=== PATIENT | male | born 1945 | race Caucasian/White ===

== ENCOUNTER → 2017-05-08 | Outpatient (CLI) | payer MEDICARE, OTHER ==
[~2017-05-08] MED LIST: ASPI81TA44 PO; ESOM20CA PO; ESOM40CA25 PO; ESTR2TAB PO; FEXO60TA25 PO; IBUP800T19 PO; NITR0.4T22 SL; SULF1TAB24 PO; TELM80TA PO
--- NOTE | 2017-05-08 13:18 | RAD ---
Indication lung cancer screening. Noncontrast imaging through the chest was performed and is compared to a study 03/30/2016. Imaging through the upper abdomen is unremarkable. A mass, compatible with a cyst, is noted in the right lobe of the liver. There is a nodule in the left lobe of the thyroid similar to the previous exam. There is some mild adenopathy in the mediastinum also appearing similar. Definite significant hilar or mediastinal adenopathy is not seen. Moderately extensive coronary calcification is noted. An acute finding in the chest is not seen. Some minimal pleural-parenchymal scarring is noted. There is no dominant soft tissue mass. IMPRESSION: No acute finding seen in the chest. No significant change. Underlying emphysematous changes. Lung BI-RADS negative. Category 1. PQRS Compliance Statement: One or more of the following individualized dose reduction techniques were utilized for this examination: 1. Automated exposure control 2. Adjustment of the mA and/or kV according to patient size 3. Use of iterative reconstruction technique
== END | disposition home or self-care (01) ==
LOC: CT 12:37
PROVIDERS: ATTEND Internal Medicine Pulmonary Disease
DX: Z12.2 Encounter for screening for malignant neoplasm of respiratory organs (principal); F17.210 Nicotine dependence, cigarettes, uncomplicated
CPT/HCPCS: 71250

== ENCOUNTER → 2018-05-11 | Outpatient (CLI) | payer MEDICARE, OTHER ==
[~2018-05-11] MED LIST changes: -ASPI81TA44 PO; +ASPI81TA59 PO
--- NOTE | 2018-05-11 14:43 | RAD ---
Indication: Smoker. COPD. Technique: Axial images and coronal and sagittal reformatted images are provided. Comparison is from May 08, 2017. One or more of the following individualized dose reduction techniques were utilized for this examination: 1. Automated exposure control 2. Adjustment of the mA and/or kV according to patient size 3. Use of iterative reconstruction technique Findings: Centrilobular and paraseptal emphysema is moderate with an upper lobe predominance. Areas of presumed atelectasis or scarring are noted in the lung bases. There is a 5 mm left costophrenic sulcus nodule on image 88. There is lingular atelectasis or scarring. There are calcified granulomas.There is no pleural effusion. Central airways are patent. There is atheromatous disease in the thoracic aorta. There are calcified mediastinal lymph nodes. There are subcentimeter short axis mediastinal lymph nodes that may be reactive. There are calcified hilar lymph nodes. There is no definite hilar adenopathy on this noncontrast study. There are coronary artery calcifications. The heart is not enlarged. There is fatty infiltration of the liver. There is a probable cyst in the right hepatic lobe measuring 17 mm that is stable. There are degenerative changes in the spine. IMPRESSION: 1. Emphysema. 2. Stable pulmonary nodule. No further workup is required per 2017 Fleischner guidelines. Electronically signed by: David Austin MD (05/11/2018 2:40 PM) [facility]
== END | disposition home or self-care (01) ==
LOC: CT 08:48
PROVIDERS: ATTEND Internal Medicine Pulmonary Disease
DX: J43.9 Emphysema, unspecified (principal); I70.0 Atherosclerosis of aorta; F17.200 Nicotine dependence, unspecified, uncomplicated; R91.1 Solitary pulmonary nodule
CPT/HCPCS: 71250

== ENCOUNTER → 2019-04-16 | Outpatient (CLI) | payer MEDICARE, OTHER ==
--- NOTE | 2019-04-16 10:49 | CARD ---
MR#: [id number] Date of Study: 04/16/2019 Ordering Physician: ROXI WELLER, Referring Physician: ROXI WELLER, Tech: Fanny Grajeda APPROVED REPORT EXAM: Two-dimensional and M-mode echocardiogram with Doppler and color Doppler. Other Information Quality : GoodHR: 61bpm INDICATION COPD CAD RISK FACTORS Hypertension Hyperlipidemia Smoking 2D DIMENSIONS RVDd3.1 (2.9-3.5cm)Left Atrium(2D)3.8 (1.6-4.0cm) IVSd1.3 (0.7-1.1cm)Aortic Root(2D)3.0 (2.0-3.7cm) LVDd5.1 (3.9-5.9cm)LVOT Diameter2.2 (1.8-2.4cm) PWd1.1 (0.7-1.1cm)LVDs3.4 (2.5-4.0cm) FS (%) 34.1 %SV77.7 ml LVEF(%)62.7 (>50%) Aortic Valve AoV Peak Jaden.118.7cm/sAoV VTI28.4cm AO Peak GR.5.6mmHgLVOT Peak Jaden.87.9cm/s LVOT VTI 21.06cmAO Mean GR.3mmHg AB (VMAX)2.02sn8QUN (VTI)2.79cm2 Mitral Valve MV E Vleecosw57.2cm/sMV DECEL TPWT705qx MV A Sicqokuq52.5cm/sE/A Ratio0.9 Pulmonary Valve PV Peak Lgiwnasd86.9cm/sPV Peak Grad.3mmHg Tricuspid Valve TR P. Rwnznemc936aj/sRAP ZFNEYMKN5exLb TR Peak Gr.54zrVvLNZH53tpTz Pulmonary Vein S1 Xngdsgkm04.0cm/sD2 Sbkitqec55.5cm/s LEFT VENTRICLE The left ventricle is normal size. There is mild to moderate concentric left ventricular hypertrophy. The left ventricular systolic function is normal. The Ejection Fraction is 55-60%. There is normal L V segmental wall motion. Transmitral Doppler flow pattern is Grade I-abnormal relaxation pattern. RIGHT VENTRICLE The right ventricle is normal size. There is normal right ventricular wall thickness. The right ventr icular systolic function is normal. ATRIA The left atrium size is normal. The right atrium size is normal. The interatrial septum is intact wit h no evidence for an atrial septal defect or patent foramen ovale as noted on 2-D or Doppler imaging. AORTIC VALVE The aortic valve is normal in structure and function. Doppler and Color Flow revealed no significant aortic regurgitation. There is no significant aortic valvular stenosis. MITRAL VALVE The mitral valve is normal in structure and function. There is no evidence of mitral valve prolapse. There is no mitral valve stenosis. Doppler and Color-flow revealed trace mitral regurgitation. TRICUSPID VALVE The tricuspid valve is normal in structure and function. Doppler and Color Flow revealed trace tricus pid regurgitation with an estimated PAP of 31 mmHg. There is no tricuspid valve stenosis. PULMONIC VALVE The pulmonary valve is normal in structure and function. Doppler and Color Flow revealed trace pulmon ic valvular regurgitation. GREAT VESSELS The aortic root is normal in size. The IVC is normal in size and collapses >50% with inspiration. PERICARDIAL EFFUSION There is no evidence of significant pericardial effusion. Critical Notification Critical Value: No <Conclusion> The left ventricular systolic function is normal. The Ejection Fraction is 55-60%. There is normal LV segmental wall motion. Transmitral Doppler flow pattern is Grade I-abnormal relaxation pattern. Trace mitral regurgitation. Trace tricuspid regurgitation with an estimated PAP of 31 mmHg. There is no evidence of significant pericardial effusion. Signed by : Lazaro Bobby, Electronically Approved : 04/16/2019 10:48:41
== END | disposition home or self-care (01) ==
LOC: ECHO 08:33
PROVIDERS: ATTEND Internal Medicine Cardiovascular Disease
DX: I25.10 Atherosclerotic heart disease of native coronary artery without angina pectoris (principal); J44.9 Chronic obstructive pulmonary disease, unspecified; E78.5 Hyperlipidemia, unspecified; F17.200 Nicotine dependence, unspecified, uncomplicated; I11.9 Hypertensive heart disease without heart failure; R00.8 Other abnormalities of heart beat
CPT/HCPCS: 93306

== ENCOUNTER 2019-05-28 09:32 | Emergency (ER) | payer MEDICARE, OTHER ==
[~2019-05-28] VITALS: Ht 182.9 cm; Wt 85.3 kg
[2019-05-28] MEDS ORDERED: IV NORMAL SALINE 1,000ML 1,000 ML IV SCH (09:50)
[2019-05-28] MEDS ORDERED: NITROGLYCERIN SUBLINGUAL 0.4 MG BOTTLE OF 25. SL PRN (10:00)
[2019-05-28 10:09] LABS: BASO # 0.1 x10^3/uL (0.0-0.2); BASO % 1 % (0-3); EOS # 0.1 x10^3/uL (0.0-0.7); EOS % 1 % (0-3); HEMATOCRIT 43.6 % (39.0-53.0); HEMOGLOBIN 14.1 g/dL (13.0-17.5); LYMPH # 2.2 x10^3/uL (1.0-4.8); LYMPH % 20 % (24-48); MEAN CORPUSCULAR HEMOGLOBIN 30 pg (25-35); MEAN CORPUSCULAR HGB CONC 32 g/dL (31-37); MEAN CORPUSCULAR VOLUME 92 fL (79-100); MONO # 0.7 x10^3/uL (0.0-1.1); MONO % 7 % (0-9); NEUT # 7.9 x10^3uL (1.8-7.7); NEUT % 71 % (31-73); PLATELET COUNT 278 x10^3/uL (140-400); RED BLOOD COUNT 4.72 x10^6/uL (4.30-5.70); RED CELL DISTRIBUTION WIDTH 14.4 % (11.5-14.5)
[2019-05-28] MEDS ORDERED: ASPIRIN 81 MG TAB.CHEW PO ONE (10:15)
--- NOTE | 2019-05-28 10:16 | PHYS DOC ---
Adult General Chief Complaint Chief Complaint: CHEST PAIN HPI HPI Patient is a 73 year old male who presents with complaint of chest pain. Patient states that his symptoms started this morning at approximately 0730. States that he awoke from sleep with chest pain. Notes that starts in the center of his chest and radiates through to his back. Describes the pain as a pressure and twisting sensation into his back. Has history of previous myocardial infarction and history of asthma. Does note associated shortness of breath. No fever or cough. Patient states that he took a total of 2 nitroglycerin at home prior to arrival of the ambulance. He was given 324 mg of aspirin and given a total of 200 �g of fentanyl by EMS prior to arrival. States despite treatment he is still having severe pain at this time. Review of Systems Review of Systems Constitutional: Denies fever or chills [] Eyes: Denies change in visual acuity, redness, or eye pain [] HENT: Denies nasal congestion or sore throat [] Respiratory: Shortness of breath[] Cardiovascular: Chest pain, denies edema[] GI: Nausea, denies abdominal pain, vomiting, bloody stools or diarrhea [] : Denies dysuria or hematuria [] Musculoskeletal: Denies back pain or joint pain [] Integument: Denies rash or skin lesions [] Neurologic: Denies headache, focal weakness or sensory changes [] All other systems were reviewed and found to be within normal limits, except as documented in this note. Current Medications Current Medications Current Medications Medications (Trade) Dose Ordered Sig/Wiliam Start Time Stop Time Status Last Admin Dose Admin Aspirin (Children'S Aspirin) 324 mg 1X ONCE 05/28/19 10:15 05/28/19 10:05 DC Fentanyl Citrate (Fentanyl 2ml Vial) 50 mcg PRN Q15MIN PRN 05/28/19 10:00 05/29/19 09:59 Nitroglycerin (Nitrostat) 0.4 mg PRN Q5MIN PRN 05/28/19 10:00 05/29/19 09:59 Ondansetron HCl (Zofran) 4 mg 1X ONCE 05/28/19 10:30 05/28/19 10:31 Sodium Chloride 1,000 ml @ 125 mls/hr Q8H 05/28/19 09:50 05/28/19 17:49 Allergies Allergies Allergies Coded Allergies Type Severity Reaction Last Updated Verified Penicillins Allergy Unknown 05/05/14 Yes orange juice Allergy Unknown 12/15/14 Yes pineapple Allergy Unknown 12/15/14 Yes Physical Exam Physical Exam Constitutional: Alert, afebrile, appears in severe discomfort. [] HENT: Normocephalic, atraumatic, bilateral external ears normal, oropharynx moist, no oral exudates, nose normal. [] Eyes: PERRLA, EOMI, conjunctiva normal, no discharge. [] Neck: Normal range of motion, no tenderness, supple, no stridor. [] Cardiovascular:Heart rate regular rhythm, no murmur [] Lungs & Thorax: Bilateral breath sounds clear to auscultation [] Abdomen: Bowel sounds normal, soft, no tenderness, no masses, no pulsatile masses. [] Skin: Warm, dry, no erythema, no rash. [] Back: No tenderness, no CVA tenderness. [] Extremities: No tenderness, no cyanosis, no clubbing, ROM intact, no edema. [] Neurologic: Alert and oriented X 3, normal motor function, normal sensory function, no focal deficits noted. [] Current Patient Data Vital Signs Vital Signs Date Time Temp Pulse Resp B/P (MAP) Pulse Ox O2 Delivery O2 Flow Rate FiO2 05/28/19 12:25 66 16 167/70 (102) 98 Nasal Cannula 2.0 05/28/19 10:27 98.2 Lab Results Laboratory Tests Test 05/28/19 09:57 White Blood Count 11.0 x10^3/uL (4.0-11.0) Red Blood Count 4.72 x10^6/uL (4.30-5.70) Hemoglobin 14.1 g/dL (13.0-17.5) Hematocrit 43.6 % (39.0-53.0) Mean Corpuscular Volume 92 fL (79-100) Mean Corpuscular Hemoglobin 30 pg (25-35) Mean Corpuscular Hemoglobin Concent 32 g/dL (31-37) Red Cell Distribution Width 14.4 % (11.5-14.5) Platelet Count 278 x10^3/uL (140-400) Neutrophils (%) (Auto) 71 % (31-73) Lymphocytes (%) (Auto) 20 % (24-48) L Monocytes (%) (Auto) 7 % (0-9) Eosinophils (%) (Auto) 1 % (0-3) Basophils (%) (Auto) 1 % (0-3) Neutrophils # (Auto) 7.9 x10^3uL (1.8-7.7) H Lymphocytes # (Auto) 2.2 x10^3/uL (1.0-4.8) Monocytes # (Auto) 0.7 x10^3/uL (0.0-1.1) Eosinophils # (Auto) 0.1 x10^3/uL (0.0-0.7) Basophils # (Auto) 0.1 x10^3/uL (0.0-0.2) EKG EKG Interpreted by me: Heart rate 53, sinus rhythm, normal intervals, normal axis, no acute ST/T-wave abnormalities present[] Radiology/Procedures Radiology/Procedures [address] [address] IMAGING REPORT Signed PATIENT: TOÑA EDWARDS ACCOUNT: [id number] : 1945 LOCATION: ER AGE: 73 SEX: M EXAM STATUS: REG ER ORD. PHYSICIAN: GALILEO QUINN MD REASON: chest pain PROCEDURE: PORTABLE CHEST 1V PORTABLE CHEST 1V Clinical Indication: Chest pain Comparison: CT chest without contrast, May 11, 2018. Findings: The cardiomediastinal silhouette is normal. Mild bibasilar atelectasis. Upper lung emphysema. There is no pneumothorax. No pleural effusion is appreciated. No acute bone abnormality. IMPRESSION: 1. Mild bibasilar atelectasis. 2. Emphysema. Electronically signed by: Noah Valverde MD (05/28/2019 10:55 AM) [id number] DICTATED AND SIGNED BY: NOAH VALVERDE MD DATE: 05/28/19 1758 CC: GALILEO QUINN MD; YONY ARTEAGA MD ~ [address] [address] IMAGING REPORT Signed PATIENT: TOÑA EDWARDS ACCOUNT: [id number] : 1945 LOCATION: ER AGE: 73 SEX: M EXAM STATUS: REG ER ORD. PHYSICIAN: GALILEO QUINN MD REASON: severe CP radiating through back, rule out aortic dissection PROCEDURE: CT ANGIO CHEST ABD PELVIS CT ANGIO CHEST ABD PELVIS History: Severe chest pain radiating to back Technique: CT angiogram of the chest abdomen and pelvis was performed with contrast. Coronal and sagittal reconstructions were performed. Exposure: One or more of the following individualized dose reduction techniques were utilized for this examination: 1. Automated exposure control 2. Adjustment of the mA and/or kV according to patient size 3. Use of iterative reconstruction technique. Contrast: 100 mL Isovue-300 IV contrast. Comparison: Chest CT May 11, 2018. CT May 08, 2017 Findings: Chest: Irregular aortic wall thickening beginning at the aortic arch distal to the left subclavian artery origin extending through the descending thoracic aorta to the aortic hiatus. There is displacement of intimal calcifications. The wall thickening has increased Hounsfield units. Findings concerning for acute intracranial hematoma. No aortic aneurysm. Coronary artery calcifications. Left thyroid heterogeneous enhancing nodule measures 2.3 x 2.2 cm. No pathologic axillary, mediastinal or hilar adenopathy. Bilateral gynecomastia. Moderate paraseptal and centrilobular emphysema. No consolidation. No pleural effusion. Calcified right lower lobe pulmonary nodule and calcified right hilar lymph node, likely prior granulomatous disease. 4 mm left lower lobe pulmonary nodule (series 5 image #134), unchanged compared to 2017. Upper abdomen: The liver, spleen, pancreas and gallbladder are unremarkable. No biliary ductal dilatation. Patent portal vein. 1.2 x 1.9 cm left adrenal nodule. 0.8 x 0.8 cm right adrenal nodule. Left renal cysts. No hydronephrosis. No renal, ureteral or urinary bladder calculus. Extensive colonic diverticulosis. Distal small bowel fecalization. No evidence of bowel obstruction. No pathologic lymphadenopathy. No ascites. Left inguinal fat-containing hernia. Otherwise, the pelvic contents are unremarkable. Infrarenal abdominal aortic aneurysm with soft and calcified plaque measures up to 3.4 cm Bones: Grade 1 anterolisthesis L5 on S1. Posterior stabilization L5-S1. Bilateral L5 spondylolysis. Multilevel lumbar spondylosis. No pathologic osseous lesion. Impression: 1. Acute [place] type B aortic intramural hematoma. 2. 3.4 cm infrarenal abdominal aortic aneurysm. 3. Moderate pulmonary emphysema. 4. Left thyroid nodule. Recommend nonemergent ultrasound. 5. Left lower lobe pulmonary nodule, unchanged. 6. Bilateral adrenal nodules, unchanged. 7. Left inguinal fat-containing hernia. 8. Bilateral gynecomastia. FOR INTERNAL CODING PURPOSES RESULT CODE: (C) Result discussed with [facility] Dr. Quinn at 11:45 AM on 05/28 2019. Electronically signed by: Carlos Manuel Alvarez DO (05/28/2019 12:20 PM) [id number] DICTATED AND SIGNED BY: CARLOS MANUEL ALVAREZ DO DATE: 05/28/19 1220 CC: GALILEO QUINN MD; YONY ARTEAGA MD ~ [] Course & Med Decision Making Course & Med Decision Making Pertinent Labs and Imaging studies reviewed. (See chart for details) Patient treated with IV fentanyl and initially attempted additional nitroglycerin for treatment. Chest x-ray showed no mediastinal widening, however due to the patient's continued complaint of chest pain radiating through back with elevated blood pressure, a CT angios was ordered to evaluate for possible aortic dissection. At 1145 I was contacted by Dr. Alvarez of radiology confirming that patient had a Type B intramural hematoma. Patient's blood pressure continued to become elevated in the emergency department requiring initiation of IV Cardene. The patient is unable to be cared for here at [facility] as he will require consultation from cardiothoracic and possibly vascular surgery which is not available here. For this reason the patient was set up for transfer to [facility]. I spoke with Dr. Coleman who accepted care of patient in hospital. I also spoke with , cardiothor [facility] surgeon, who agreed with initial management and agreed to consult on patient in hospital. He did not recommend immediate surgical intervention at this time. I spoke with Dejon Alvarez, advanced practice provider for Dr. Heath of cardiology. He stated that they would also agree to consult on patient in hospital and agreed with initial management. Patient transferred by ground ambulance to [facility] for direct admission to ICU. Critical care time excluding procedures: 50 minutes] Dragon Disclaimer Dragon Disclaimer This electronic medical record was generated, in whole or in part, using a voice recognition dictation system. Departure Departure: Impression: Primary Impression: Intramural aortic hematoma Additional Impressions: Chest pain Malignant hypertension Hyperglycemia Aneurysm of infrarenal abdominal aorta Disposition: 02 XFER SHT-TRM HOSP Condition: GUARDED Referrals: YONY ARTEAGA MD (PCP) Problem Qualifiers Additional Impressions: Chest pain Chest pain type: other chest pain Qualified Codes: R07.89 - Other chest pain GALILEO QUINN MD May 28, 2019 10:16
[2019-05-28] MEDS ORDERED: ONDANSETRON PF 4 MG/2 ML VIAL. IV ONE (10:30)
[2019-05-28 10:41] LABS: ALBUMIN 3.5 g/dL (3.4-5.0); ALBUMIN/GLOBULIN RATIO 0.9 (1.0-1.7); CALCIUM 8.8 mg/dL (8.5-10.1); CREATININE 1.1 mg/dL (0.7-1.3); GFR 65.8; MAGNESIUM 1.9 mg/dL (1.8-2.4); POTASSIUM 4.3 mmol/L (3.5-5.1); TOTAL BILIRUBIN 0.4 mg/dL (0.2-1.0); TOTAL PROTEIN 7.4 g/dL (6.4-8.2)
--- NOTE | 2019-05-28 10:58 | RAD ---
PORTABLE CHEST 1V Clinical Indication: Chest pain Comparison: CT chest without contrast, May 11, 2018. Findings: The cardiomediastinal silhouette is normal. Mild bibasilar atelectasis. Upper lung emphysema. There is no pneumothorax. No pleural effusion is appreciated. No acute bone abnormality. IMPRESSION: 1. Mild bibasilar atelectasis. 2. Emphysema. Electronically signed by: Noah Valverde MD (05/28/2019 10:55 AM) [id number]
[2019-05-28] MEDS ORDERED: IOHEXOL 300 MG/ML 75 ML VIAL. IV ONE (11:10)
[2019-05-28] MEDS ORDERED: IOHEXOL 240 MG/ML 50ML VIAL. PO ONE (11:10)
[2019-05-28] MEDS ORDERED: IOHEXOL 350 MG/ML 100 ML VIAL. IV ONE (11:20)
[2019-05-28] MEDS ORDERED: IV NORMAL SALINE 250ML 250 ML ONE (11:58)
--- NOTE | 2019-05-28 12:23 | RAD ---
CT ANGIO CHEST ABD PELVIS History: Severe chest pain radiating to back Technique: CT angiogram of the chest abdomen and pelvis was performed with contrast. Coronal and sagittal reconstructions were performed. Exposure: One or more of the following individualized dose reduction techniques were utilized for this examination: 1. Automated exposure control 2. Adjustment of the mA and/or kV according to patient size 3. Use of iterative reconstruction technique. Contrast: 100 mL Isovue-300 IV contrast. Comparison: Chest CT May 11, 2018. CT May 08, 2017 Findings: Chest: Irregular aortic wall thickening beginning at the aortic arch distal to the left subclavian artery origin extending through the descending thoracic aorta to the aortic hiatus. There is displacement of intimal calcifications. The wall thickening has increased Hounsfield units. Findings concerning for acute intracranial hematoma. No aortic aneurysm. Coronary artery calcifications. Left thyroid heterogeneous enhancing nodule measures 2.3 x 2.2 cm. No pathologic axillary, mediastinal or hilar adenopathy. Bilateral gynecomastia. Moderate paraseptal and centrilobular emphysema. No consolidation. No pleural effusion. Calcified right lower lobe pulmonary nodule and calcified right hilar lymph node, likely prior granulomatous disease. 4 mm left lower lobe pulmonary nodule (series 5 image #134), unchanged compared to 2017. Upper abdomen: The liver, spleen, pancreas and gallbladder are unremarkable. No biliary ductal dilatation. Patent portal vein. 1.2 x 1.9 cm left adrenal nodule. 0.8 x 0.8 cm right adrenal nodule. Left renal cysts. No hydronephrosis. No renal, ureteral or urinary bladder calculus. Extensive colonic diverticulosis. Distal small bowel fecalization. No evidence of bowel obstruction. No pathologic lymphadenopathy. No ascites. Left inguinal fat-containing hernia. Otherwise, the pelvic contents are unremarkable. Infrarenal abdominal aortic aneurysm with soft and calcified plaque measures up to 3.4 cm Bones: Grade 1 anterolisthesis L5 on S1. Posterior stabilization L5-S1. Bilateral L5 spondylolysis. Multilevel lumbar spondylosis. No pathologic osseous lesion. Impression: 1. Acute [place] type B aortic intramural hematoma. 2. 3.4 cm infrarenal abdominal aortic aneurysm. 3. Moderate pulmonary emphysema. 4. Left thyroid nodule. Recommend nonemergent ultrasound. 5. Left lower lobe pulmonary nodule, unchanged. 6. Bilateral adrenal nodules, unchanged. 7. Left inguinal fat-containing hernia. 8. Bilateral gynecomastia. FOR INTERNAL CODING PURPOSES RESULT CODE: (C) Result discussed with [facility] HECTOR Quinn at 11:45 AM on 05/28 2019. Electronically signed by: Carlos Manuel Alvarez DO (05/28/2019 12:20 PM) [id number]
--- NOTE | 2019-05-28 12:43 | EKG ---
[address] [address] Test Date: 2019-05-28 Test Time: 09:40:50 Pat Name: TOÑA EDWARDS Department: Room: Gender: M [employer]: : 1945 Requested By: GALILEO SORIANO Order Number: [id number] Reading MD: Measurements Intervals [place] Rate: 53 P: 0 OK: 134 QRS: 16 QRSD: 86 T: 53 QT: 462 QTc: 436 Interpretive Statements SINUS RHYTHM QRS(T) CONTOUR ABNORMALITY CONSIDER ANTEROLATERAL MYOCARDIAL DAMAGE POSSIBLY ABNORMAL ECG RI6.01 No previous ECG available for comparison
[2019-05-28 13:04] VITALS: BP 165/72
== END 2019-05-28 12:45 | disposition short-term general hospital (02) ==
LOC: ER 09:32
DX: I71.00 Dissection of unspecified site of aorta (principal); I71.02 Dissection of abdominal aorta; I71.4 Abdominal aortic aneurysm, without rupture; J43.9 Emphysema, unspecified; R91.1 Solitary pulmonary nodule; N62 Hypertrophy of breast; R07.89 Other chest pain; I10 Essential (primary) hypertension; R73.9 Hyperglycemia, unspecified
CPT/HCPCS: 36415; 71045; 71275; 74174; 80053; 82553; 83690; 83735; 83880; 84484; 85025; 93005; 96365; 96375; 99291; J2405; J3010; J7050; Q9967; 96361; 96366; 99285-25; J7030

== ENCOUNTER → 2019-05-31 | Outpatient (CLI) | payer MEDICARE, OTHER ==
[2019-05-28 13:04] VITALS: BP 165/72
--- NOTE | 2019-05-31 11:47 | RAD ---
PQRS Compliance statement: One or more of the following individualized dose reduction techniques were utilized for this examination: 1. Automated exposure control. 2. Adjustment of the mA and/or kV according to patient size. 3. Use of iterative reconstruction technique. Indication:Lung nodule. Follow-up. TECHNIQUE: CT chest without IV contrast with multiplanar reformats. COMPARISON: Previous CT from 05/11/2018 FINDINGS: Heart is normal in size. No pericardial or pleural effusion. Large left thyroid lobe nodule measuring 3.2 x 2.6 cm. No enlarged axillary lymph nodes. Multiple shotty mediastinal lymph nodes are seen, the largest measuring 1.1 x 1.0 cm which is stable. Calcified right hilar lymph nodes. Evaluation of hilar lymphadenopathy is limited due to lack of IV contrast. Bilateral gynecomastia. Mild emphysema. Stable 5 mm left lung base nodule (series 2 image 85). Mild bibasilar subpleural atelectasis. No new nodules. Visualized noncontrast sections through the liver, spleen, gallbladder, pancreas, adrenals and visualized left kidney within normal limits. No suspicious bony lesion. IMPRESSION: Stable left lung base nodule dating back to 05/08/2017. Given long-term stability this is benign. Mild emphysema. Left thyroid nodule. Nonemergent ultrasound recommended. Electronically signed by: Steve Morris DO (05/31/2019 11:43 AM) [facility]
== END | disposition home or self-care (01) ==
LOC: CT 11:07
PROVIDERS: ATTEND Internal Medicine Pulmonary Disease
DX: J43.9 Emphysema, unspecified (principal); J98.11 Atelectasis; J98.4 Other disorders of lung; R91.1 Solitary pulmonary nodule; E04.1 Nontoxic single thyroid nodule; N62 Hypertrophy of breast
CPT/HCPCS: 71250

== ENCOUNTER 2019-07-31 19:00 | Inpatient (IN) | payer MEDICARE, OTHER ==
[~2019-07-31] VITALS: Ht 182.9 cm; Wt 89.8 kg
--- NOTE | 2019-07-31 19:10 | PHYS DOC ---
Past History Past Medical History: Asthma, CAD, Heart Disease, Hypertension Additional Past Medical Histor: abdominal aneurysm Past Surgical History: Tonsillectomy, Other Additional Past Surgical Histo: Right leg, Lumbar, cardiac stent Smoking: Cigarettes Alcohol Use: Occasionally Drug Use: None Adult General Chief Complaint Chief Complaint: CHEST PAIN HPI HPI 73-year-old male presents with one-day history of chest pain. Patient also notes dyspnea on exertion. Reports blood pressure has been elevating over the last se veral weeks. Patient reports his PCP recently started him on a new antihypertensive however pharmacy did not have the medication and therefore patient has not started yet. Denies trauma. Denies leg swelling or calf tenderness. Denies pleuritic pain. Denies diaphoresis or nausea. Reports some radiation of pain to his left arm. Patient recently admitted to [facility] in May 2019 for aortic mural hematoma and abdominal aortic aneurysm combined with elevated blood pressure. Denies need for surgical repair at that time. Reports they are watching this area and treating symptomatically. Reports he follows with Dr. Heath (cardiology). Review of Systems Review of Systems Constitutional: Denies fever or chills; reports malaise Eyes: Denies redness or eye pain HENT: Denies nasal congestion or sore throat Respiratory: Denies cough; reports dyspnea on exertion Cardiovascular: Reports chest pain; denies palpitations GI: Denies abdominal pain, nausea, or vomiting : Denies dysuria or hematuria Musculoskeletal: Denies back pain or joint pain Integument: Denies rash or skin lesions Neurologic: Denies headache, focal weakness or sensory changes Complete systems were reviewed and found to be within normal limits, except as documented in this note. Allergies Allergies Allergies Coded Allergies Type Severity Reaction Last Updated Verified Penicillins Allergy Unknown 05/05/14 Yes orange juice Allergy Unknown 12/15/14 Yes pineapple Allergy Unknown 12/15/14 Yes Physical Exam Physical Exam Constitutional: Well developed, well nourished, uncomfortable, non-toxic appearance HENT: Normocephalic, atraumatic, oropharynx moist Eyes: Conjunctiva normal, no discharge Neck: Normal range of motion, no tenderness, supple Cardiovascular: Heart rate normal, regular rhythm Lungs & Thorax: Bilateral breath sounds clear to auscultation, no wheezing Abdomen: Soft, no tenderness Skin: Warm, dry, no erythema, no rash Extremities: No tenderness, ROM intact, no edema Neurologic: Alert and oriented X 3, normal motor function, normal sensory function, no focal deficits noted Psychologic: Affect anxious, judgement normal EKG EKG @1906 NSR at 66bpm, NO ST elevation, occasional PAC, QRS 86ms, QT/QTc 410/432ms Radiology/Procedures Radiology/Procedures PROCEDURE: CT ANGIOGRAPHY CHEST ABDOMEN CT ANGIOGRAPHY CHEST ABDOMEN History: Chest pain. History of thoracic dissection Technique: CT angiogram of the chest and abdomen was performed with contrast. Coronal and sagittal reconstructions were performed. Exposure: One or more of the following individualized dose reduction techniques were utilized for this examination: 1. Automated exposure control 2. Adjustment of the mA and/or kV according to patient size 3. Use of iterative reconstruction technique. Comparison: May 28, 2019 Findings: Chest: No evidence of pulmonary embolism. No evidence of aortic dissection or aneurysm. Decreased previously seen intramural hematoma. Mild scattered thoracic aortic atheromatous plaque involving the great vessels. Left thyroid nodule, unchanged. No pathologic axillary, mediastinal or hilar adenopathy. Bilateral gynecomastia, unchanged. Moderate pulmonary emphysema. Prior granulomas disease. Scattered bilateral lower lobe and lingular subsegmental atelectasis, decreased. No consolidation or pleural effusion. The 0.8 x 0.8 cm right upper lobe groundglass opacity along the major fissure (series 5 image #52), new compared to prior. Left lower lobe pulmonary nodule, unchanged. Abdomen: 3.3 cm infrarenal abdominal aortic aneurysm, unchanged. Atheromatous plaque throughout the abdominal aorta with eccentric plaque within the aneurysm on the left, unchanged. Bilateral adrenal gland nodules, unchanged. Left renal hypodensities, unchanged and likely cysts. Bones: No pathologic osseous lesions. Postop changes lumbar spine. Impression: 1. Decreased previously seen thoracic aortic intramural hematoma. No evidence of dissection. 2. Infrarenal abdominal aortic aneurysm, unchanged. 3. New right upper lobe focal groundglass opacity, may represent focal atelectasis or scarring or inflammatory nodule. Recommend short-term follow-up. 4. Moderate pulmonary emphysema. 5. Left thyroid nodule, unchanged. 6. Bilateral adrenal nodules, unchanged. Electronically signed by: Carlos Manuel Alvarez DO (07/31/2019 8:12 PM) [facility] Course & Med Decision Making Course & Med Decision Making Pertinent Labs and Imaging studies reviewed. (See chart for details) Patient presents with atypical chest pain with history of abdominal aortic aneurysm as well as aortic mural hematoma. Blood pressure noted to be significantly elevated. Pain addressed. EKG stable. Labs obtained and posted to chart. Initial troponin within normal limits. CTA chest/abdomen with interval improvement of thoracic mural hematoma and stability of known abdominal aortic aneurysm. Blood pressure continued to be elevated despite medications. HEART score 6. Patient requiring admission for further evaluation and treatment. Discussed with Dr. Beach (hospitalist) who is in agreement with admission. Cardiology consult placed. Discussed findings and plan with patient and family, who acknowledge understanding and agreement. Dragon Disclaimer Dragon Disclaimer This electronic medical record was generated, in whole or in part, using a voice recognition dictation system. Departure Departure: Impression: Primary Impression: Chest pain Additional Impressions: Hypertensive urgency Abdominal aortic aneurysm Disposition: ADMITTED INPATIENT Admitting Physician: Alexandr Beach Condition: STABLE Referrals: YONY ARTEAGA MD (PCP) HEART Score for Chest Pain PTs The HEART Score for CP Pts HEART Score for Chest Pain: HEART Score for Chest Pain Response (Comments) Value History Highly Suspicious 2 ECG Normal 0 Age > 65 2 Risk Factors >3 Risk Factors or Hx CAD 2 Troponin < Normal Limit 0 Total 6 Risk Factors: Risk Factors: DM, Current or recent (<one month) smoker, HTN, HLP, family history of CAD, obesity. Risk Scores: Score 0 - 3: 2.5% MACE over next 6 weeks - Discharge Home Score 4 - 6: 20.3% MACE over next 6 weeks - Admit for Clinical Observation Score 7 - 10: 72.7% MACE over next 6 weeks - Early Invasive Strategies Problem Qualifiers Primary Impression: Chest pain Chest pain type: unspecified Qualified Codes: R07.9 - Chest pain, unspecified Additional Impressions: Abdominal aortic aneurysm Presence of rupture: without rupture Qualified Codes: I71.4 - Abdominal aortic aneurysm, without rupture DANIAL JHA DO Jul 31, 2019 19:10
[2019-07-31] MEDS ORDERED: IV NORMAL SALINE 1,000ML 1,000 ML IV ONE (19:15)
[2019-07-31] MEDS ORDERED: ASPIRIN 325 MG TABLET PO ONE (19:15)
[2019-07-31] MEDS ORDERED: IOHEXOL 350 MG/ML 100 ML VIAL. IV ONE (19:15)
[2019-07-31] MEDS ORDERED: LABETALOL 20 MG/4 ML DISP.SYRIN. ONE (19:18)
[2019-07-31] MEDS ORDERED: MORPHINE SULFATE 4 MG/ML DISP.SYRIN. ONE (19:23)
[2019-07-31] MEDS ORDERED: MORPHINE SULFATE 4 MG/ML DISP.SYRIN. IV ONE (19:30)
[2019-07-31] MEDS ORDERED: LABETALOL 100 MG/20 ML VIAL. IV ONE (19:30)
[2019-07-31] MEDS ORDERED: LABETALOL 20 MG/4 ML DISP.SYRIN. IVP ONE (19:30)
[2019-07-31 19:37] LABS: BASO % 0 % (0-3); EOS # 0.3 x10^3/uL (0.0-0.7); EOS % 3 % (0-3); HEMATOCRIT 39.2 % (39.0-53.0); LYMPH # 3.2 x10^3/uL (1.0-4.8); LYMPH % 32 % (24-48); MEAN CORPUSCULAR HEMOGLOBIN 30 pg (25-35); MEAN CORPUSCULAR HGB CONC 33 g/dL (31-37); MEAN CORPUSCULAR VOLUME 91 fL (79-100); MONO # 0.9 x10^3/uL (0.0-1.1); MONO % 9 % (0-9); NEUT # 5.6 x10^3uL (1.8-7.7); NEUT % 56 % (31-73); PLATELET COUNT 283 x10^3/uL (140-400); RED BLOOD COUNT 4.28 x10^6/uL (4.30-5.70); RED CELL DISTRIBUTION WIDTH 14.8 % (11.5-14.5)
[2019-07-31 19:55] LABS: ALBUMIN 3.4 g/dL (3.4-5.0); ALBUMIN/GLOBULIN RATIO 0.9 (1.0-1.7); CALCIUM 8.3 mg/dL (8.5-10.1); CREATININE 1.1 mg/dL (0.7-1.3); GFR 65.8; POTASSIUM 3.6 mmol/L (3.5-5.1); TOTAL BILIRUBIN 0.4 mg/dL (0.2-1.0); TOTAL PROTEIN 7.4 g/dL (6.4-8.2)
[2019-07-31] MEDS ORDERED: NITROGLYCERIN OINT 1 GM PACKET. TP ONE (20:00)
--- NOTE | 2019-07-31 20:15 | RAD ---
CT ANGIOGRAPHY CHEST ABDOMEN History: Chest pain. History of thoracic dissection Technique: CT angiogram of the chest and abdomen was performed with contrast. Coronal and sagittal reconstructions were performed. Exposure: One or more of the following individualized dose reduction techniques were utilized for this examination: 1. Automated exposure control 2. Adjustment of the mA and/or kV according to patient size 3. Use of iterative reconstruction technique. Comparison: May 28, 2019 Findings: Chest: No evidence of pulmonary embolism. No evidence of aortic dissection or aneurysm. Decreased previously seen intramural hematoma. Mild scattered thoracic aortic atheromatous plaque involving the great vessels. Left thyroid nodule, unchanged. No pathologic axillary, mediastinal or hilar adenopathy. Bilateral gynecomastia, unchanged. Moderate pulmonary emphysema. Prior granulomas disease. Scattered bilateral lower lobe and lingular subsegmental atelectasis, decreased. No consolidation or pleural effusion. The 0.8 x 0.8 cm right upper lobe groundglass opacity along the major fissure (series 5 image #52), new compared to prior. Left lower lobe pulmonary nodule, unchanged. Abdomen: 3.3 cm infrarenal abdominal aortic aneurysm, unchanged. Atheromatous plaque throughout the abdominal aorta with eccentric plaque within the aneurysm on the left, unchanged. Bilateral adrenal gland nodules, unchanged. Left renal hypodensities, unchanged and likely cysts. Bones: No pathologic osseous lesions. Postop changes lumbar spine. Impression: 1. Decreased previously seen thoracic aortic intramural hematoma. No evidence of dissection. 2. Infrarenal abdominal aortic aneurysm, unchanged. 3. New right upper lobe focal groundglass opacity, may represent focal atelectasis or scarring or inflammatory nodule. Recommend short-term follow-up. 4. Moderate pulmonary emphysema. 5. Left thyroid nodule, unchanged. 6. Bilateral adrenal nodules, unchanged. Electronically signed by: Carlos Manuel Alvarez DO (07/31/2019 8:12 PM) [facility]
[2019-07-31] MEDS ORDERED: hydrALAZINE 20 MG/ML VIAL. IV ONE (20:45)
[2019-07-31] MEDS ORDERED: ONDANSETRON PF 4 MG/2 ML VIAL. IV PRN (20:45)
[2019-07-31] MEDS ORDERED: MORPHINE SULFATE 4 MG/ML DISP.SYRIN. IV PRN (20:45)
[2019-07-31] MEDS ORDERED: hydrALAZINE 20 MG/ML VIAL. IV PRN (21:00)
[2019-07-31] MEDS ORDERED: IPRATRPIUM/ALBUTEROL 0.5/2.5MG 3 ML NEBU. NEB ONE ×2 (21:15→22:45)
[2019-07-31 21:53] VITALS: BP 192/91
[2019-07-31] MEDS ORDERED: PANT40TA5 PO (22:35)
[2019-07-31] MEDS ORDERED: LACT20PA3 PO (22:35)
[2019-07-31] MEDS ORDERED: METO-239 PO (22:35)
[2019-08-01 00:16] VITALS: BP 154/75
--- NOTE | 2019-08-01 04:31 | EKG ---
[address] [address] Test Date: 2019-07-31 Test Time: 19:06:58 Pat Name: TOÑA EDWARDS Department: Room: [facility] 1 Gender: M Clinical Staff Educator: : 1945 Requested By: DANIAL JHA Order Number: [id number] Reading MD: Ashish Heath MD Measurements Intervals Logan Rate: 66 P: 52 MD: 168 QRS: 26 QRSD: 86 T: 46 QT: 410 QTc: 432 Interpretive Statements SINUS RHYTHM NON-SPECIFIC ST/T CHANGES Electronically Signed On 08-11-2019 11:49:46 CDT by Ashish Heath MD
[2019-08-01 04:39] VITALS: BP 153/79
--- NOTE | 2019-08-01 08:20 | PDOC2 ---
CARDIAC CONSULT DATE OF CONSULT Date Of Consult DATE: 08/01/19 TIME: 08:15 REASON FOR CONSULT Reason for Consult Chest Pain Hypertension REFERRING PHYSICIAN Referring Physician Dr. Mcneal SOURCE Source: Chart review, Patient HPI History of Present Illness This is a 73 yo male who presented secondary to chest pain and elevated blood pressure. Was admitted to the hospital in March of this year secondary to chest pain. Was noted with hypertensive emergency and type B aortic intramural hematoma. Echo revealed preserved LV systolic function. Blood pressure control and serial monitoring of hematoma recommended. Patient report blood pressure was controlled for the first 2-3 weeks following discharge. Blood pressure then gradually creeped up. Saw PCP who increased his Toprol to BID. Blood pressure was well controlled from that point with usual range of 130-140 systolic pressure. Over the last couple of weeks, has been much more elevated despite no changes in medications. Yesterday developed pain in his central chest. Describes as pressure. Associated with shortness of breath. Took blood pressure and was 180/89. Took SL nitro, which resolved pain, but did not improved blood pressure much. Due to persistent hypertension and history of aortic intramural hematoma, patient came to the ED for further evaluation and treatment. Patient continued to have mild chest pain intermittently overnight. About 2am, had episode of central chest pressure, despite blood pressure not being significantly elevated. Had episode of nausea with vomiting x1 this am. Denies any LE edema or diaphoresis. No recent illness/fevers. PAST MEDICAL HISTORY Cardiovascular: CAD, HTN, Other ( Infrarenal abdominal aortic aneurysm, Type B aortic intramural hematoma) Pulmonary: Asthma, COPD, Pneumonia GI: Diverticulosis, GERD, Irritable bowel disease Musculoskeletal: Osteoarthritis, Other (DDD) Rheumatologic: Rheumatoid arthritis PAST SURGICAL HISTORY Past Surgical History Arthroscopy (right knee), Other (lower back surgery; thyroid biopsy; PCI/stent ) FAMILY HISTORY Family History: Heart Disease SOCIAL HISTORY Smoke: Quit (05/2019) ALCOHOL: none Drugs: None Lives: with Family CURRENT MEDICATIONS Current Medications Current Medications Aspirin (Cari Aspirin) 325 mg 1X ONCE PO Last administered on 07/31/19at 19:19; Start 07/31/19 at 19:15; Stop 07/31/19 at 19:16; Status DC Sodium Chloride 1,000 ml @ 1,000 mls/hr 1X ONCE IV Last administered on 07/31/19at 19:51; Start 07/31/19 at 19:15; Stop 07/31/19 at 20:14; Status DC Iohexol (Omnipaque 350 Mg/ml) 100 ml 1X ONCE IV Last administered on 07/31/19at 19:30; Start 07/31/19 at 19:15; Stop 07/31/19 at 19:17; Status DC Labetalol HCl (Normodyne) 20 mg 1X ONCE IV ; Start 07/31/19 at 19:30; Stop 07/31/19 at 19:24; Status DC Labetalol HCl (Normodyne) 20 mg STK-MED ONCE .ROUTE ; Start 07/31/19 at 19:18; Stop 07/31/19 at 19:18; Status DC Labetalol HCl (Normodyne) 20 mg 1X ONCE IVP Last administered on 07/31/19at 19:21; Start 07/31/19 at 19:30; Stop 07/31/19 at 19:31; Status DC Morphine Sulfate (Morphine 4mg Syringe) 4 mg STK-MED ONCE .ROUTE ; Start 07/31/19 at 19:23; Stop 07/31/19 at 19:24; Status DC Morphine Sulfate (Morphine 4mg Syringe) 4 mg 1X ONCE IV Last administered on 07/31/19at 19:30; Start 07/31/19 at 19:30; Stop 07/31/19 at 19:36; Status DC Nitroglycerin (Nitro-Bid Oint) 1 inch 1X ONCE TP Last administered on 07/31/19at 20:07; Start 07/31/19 at 20:00; Stop 07/31/19 at 20:03; Status DC Hydralazine HCl (Apresoline) 20 mg 1X ONCE IV Last administered on 07/31/19at 21:06; Start 07/31/19 at 20:45; Stop 07/31/19 at 20:46; Status DC Ondansetron HCl (Zofran) 4 mg PRN Q4HRS PRN IV NAUSEA/VOMITING; Start 07/31/19 at 20:45; Stop 08/01/19 at 20:44 Morphine Sulfate (Morphine 4mg Syringe) 4 mg PRN Q4HRS PRN IV PAIN Last administered on 08/01/19at 01:59; Start 07/31/19 at 20:45 Hydralazine HCl (Apresoline) 20 mg PRN Q4HRS PRN IV ELEVATED BP, SEE COMMENTS; Start 07/31/19 at 21:00 Albuterol/ Ipratropium (Duoneb) 3 ml 1X ONCE NEB Last administered on 07/31/19at 23:20; Start 07/31/19 at 21:15; Stop 07/31/19 at 21:16; Status DC Albuterol/ Ipratropium (Duoneb) 3 ml 1X ONCE NEB ; Start 07/31/19 at 22:45; Stop 07/31/19 at 22:41; Status DC Metoprolol Succinate (Toprol Xl) 25 mg BID PO ; Start 08/01/19 at 09:00 Active Scripts Active Reported Pantoprazole Sodium 40 Mg Tablet.dr 40 Mg PO DAILY MDD 40 Kristalose (Lactulose) 20 Gm Packet 20 G PO DAILY MDD 20 Metoprolol Succinate ( Xl ) (Metoprolol Succinate) 25 Mg Tab.er.24h 25 Mg PO BID MDD 25 NITROGLYCERIN SubLingual (Nitroglycerin) 0.4 Mg Tab.subl 0.4 Mg SL Children's Aspirin (Aspirin) 81 Mg Tab.chew 81 Mg PO Ibuprofen 800 Mg Tablet 800 Mg PO Estradiol 2 Mg Tablet 2 Mg PO Laurita Allergy (Fexofenadine Hcl) 60 Mg Tablet 60 Mg PO Micardis (Telmisartan) 80 Mg Tablet 80 Mg PO ALLERGIES Allergies: Coded Allergies: Penicillins (Verified Allergy, Unknown, 05/05/14) orange juice (Verified Allergy, Unknown, 12/15/14) pineapple (Verified Allergy, Unknown, 12/15/14) ROS Review of Systems 14 point ROS conducted with pertinent positives noted above in HPI PHYSICAL EXAM Physical Exam General: Alert, Oriented X3, Cooperative, No acute distress HEENT: Atraumatic, Mucous membr. moist/pink Lungs: Clear to auscultation, Normal air movement Heart: Regular rate (SR), Normal S1, Normal S2, No murmurs Abdomen: Soft, No tenderness Extremities: No cyanosis, No edema Skin: No breakdown, No significant lesion Neuro: Normal speech, Sensation intact Psych/Mental Status: Mental status NL, Mood NL MUSCULOSKELETAL: Osteoarthritic changes both hands VITALS Vital Signs Vital Signs Date Time Temp Pulse Resp B/P (MAP) Pulse Ox O2 Delivery O2 Flow Rate FiO2 08/01/19 04:39 97.8 65 17 153/79 (103) Room Air 07/31/19 23:20 97 07/31/19 21:53 0.0 LABS LABS Laboratory Tests Test 07/31/19 19:05 07/31/19 23:50 08/01/19 02:45 White Blood Count 10.0 x10^3/uL (4.0-11.0) Red Blood Count 4.28 x10^6/uL (4.30-5.70) Hemoglobin 13.0 g/dL (13.0-17.5) Hematocrit 39.2 % (39.0-53.0) Mean Corpuscular Volume 91 fL (79-100) Mean Corpuscular Hemoglobin 30 pg (25-35) Mean Corpuscular Hemoglobin Concent 33 g/dL (31-37) Red Cell Distribution Width 14.8 % (11.5-14.5) Platelet Count 283 x10^3/uL (140-400) Neutrophils (%) (Auto) 56 % (31-73) Lymphocytes (%) (Auto) 32 % (24-48) Monocytes (%) (Auto) 9 % (0-9) Eosinophils (%) (Auto) 3 % (0-3) Basophils (%) (Auto) 0 % (0-3) Neutrophils # (Auto) 5.6 x10^3uL (1.8-7.7) Lymphocytes # (Auto) 3.2 x10^3/uL (1.0-4.8) Monocytes # (Auto) 0.9 x10^3/uL (0.0-1.1) Eosinophils # (Auto) 0.3 x10^3/uL (0.0-0.7) Basophils # (Auto) 0.0 x10^3/uL (0.0-0.2) Prothrombin Time < 9.3 SEC (9.4-11.4) Prothromb Time International Ratio 0.9 (0.9-1.1) Activated Partial Thromboplast Time 25 SEC (23-33) Sodium Level 139 mmol/L (136-145) Potassium Level 3.6 mmol/L (3.5-5.1) Chloride Level 102 mmol/L (98-107) Carbon Dioxide Level 31 mmol/L (21-32) Anion Gap 6 (6-14) Blood Urea Nitrogen 10 mg/dL (8-26) Creatinine 1.1 mg/dL (0.7-1.3) Estimated GFR (Cockcroft-Gault) 65.8 BUN/Creatinine Ratio 9 (6-20) Glucose Level 111 mg/dL (70-99) Calcium Level 8.3 mg/dL (8.5-10.1) Magnesium Level 2.0 mg/dL (1.8-2.4) Total Bilirubin 0.4 mg/dL (0.2-1.0) Aspartate Amino Transf (AST/SGOT) 17 U/L (15-37) Alanine Aminotransferase (ALT/SGPT) 14 U/L (16-63) Alkaline Phosphatase 75 U/L (46-116) Creatine Kinase 112 U/L (39-308) Creatine Kinase MB (Mass) 2.8 ng/mL (0.0-3.6) Creatine Kinase MB Relative Index 2.5 % (0-4) Troponin I Quantitative < 0.017 ng/mL (0-0.055) < 0.017 ng/mL (0-0.055) < 0.017 ng/mL (0-0.055) IX-Hlv-P-Type Natriuretic Peptide 836 pg/mL (0-124) Total Protein 7.4 g/dL (6.4-8.2) Albumin 3.4 g/dL (3.4-5.0) Albumin/Globulin Ratio 0.9 (1.0-1.7) Lipase 144 U/L (73-393) ECHOCARDIOGRAM Echocardiogram <Conclusion> The left ventricular systolic function is normal. The Ejection Fraction is 55-60%. There is normal LV segmental wall motion. Transmitral Doppler flow pattern is Grade I-abnormal relaxation pattern. Trace mitral regurgitation. Trace tricuspid regurgitation with an estimated PAP of 31 mmHg. There is no evidence of significant pericardial effusion. DATE: 04/16/19 1048 ASSESSMENT/PLAN Assessment/Plan 1. Chest pain, mixed features; AMI ruled out. Pain relieved with nitro. Continue to have intermittent CP overnight despite improved BP 2. Hypertensive urgency; labile this morning 3. CAD; s/p PCI to the LAD in 2009; Echo with preserved LV systolic function 4. Type B aortic intramural hematoma; decrease in size compared to CTA 03/2019. No evidence of dissection 5. Hyperlipidemia 6. COPD 7. Infrarenal abdominal aortic aneurysm; 3.4 cm 8. Tobaccoism; recent remission Recommendations Continue BB, ARB Add Norvasc Hydralazine IV PRN ASA Given symptomatology, uncontrolled, labile blood pressure despite medication compliance, h/o CAD, and CP relieved with nitro, recommend further ischemic workup for definitive evaluation. R/b/a discussed with patient and he is agreeable. Will transfer to [facility] and proceed with in am NPO pMN LYNDON FARR APRN Aug 01, 2019 08:20
[2019-08-01] MEDS ORDERED: METOPROLOL SUCC 24HR ER 25 MG TAB.ER.24H. PO SCH (09:00)
[2019-08-01] MEDS ORDERED: ASPIRIN 81 MG TAB.CHEW PO SCH (09:00)
[2019-08-01] MEDS ORDERED: PANTOPRAZOLE 40 MG TABLET. PO SCH (09:00)
[2019-08-01] MEDS ORDERED: amLODIPine BESYLATE 5 MG TABLET PO SCH (09:15)
[2019-08-01] MEDS ORDERED: LOSARTAN 50 MG TABLET. PO SCH (09:15)
[2019-08-01 11:00] VITALS: BP 174/79
[2019-08-01] MEDS ORDERED: IBUPROFEN 800 MG TABLET. PO PRN (11:30)
[2019-08-01] MEDS ORDERED: LACTULOSE 20 GM/30 ML SOLUTION. PO SCH (12:15)
--- NOTE | 2019-08-01 15:46 | SSS ---
ADMIT DATE: HISTORY OF PRESENT ILLNESS: The patient is a 73-year-old male patient who came to the Emergency Room complaining of chest pain. He also has noted some dyspnea on exertion. His blood pressure has been extremely elevated over the last several weeks. He stated that his primary care physician started him on a new antihypertensive medication in the form of Benicar, however, he went to ____ and they do not have it in their formulary, so he has not really tried it. He is normally on metoprolol and Micardis and he tried yesterday the sublingual nitroglycerin that alleviated the chest pain; however, he dropped his blood pressure and therefore he came to the Emergency Room as he is known to have aortic dissection and aortic mural hematoma and abdominal aortic aneurysm combined with elevated blood pressure that did not require any surgical repair at that time. Apparently, he has been followed closely by the Cardiology team and treatment in the form of tight blood pressure control. The patient denied any nausea or vomiting. Denied any diaphoresis. He did complain that the pain is radiating to his left arm. He was evaluated in the Emergency Room and his first set of cardiac enzyme was less than 0.017 and therefore, the patient was admitted to the ICU to do 2 more sets of cardiac enzyme and to consult the cardiology team and apparently his blood pressure continued to be suboptimally controlled and he did have 2 more sets of cardiac enzymes that showed troponin less than 0.017 and therefore the Cardiology team recommended transferring him to [facility] straight to the flower shop laborer/designer for cardiac catheterization. PAST MEDICAL HISTORY: Significant for coronary artery disease, hypertension, infrarenal abdominal aortic aneurysm, bronchial asthma, chronic obstructive pulmonary disease, diverticulosis, gastroesophageal reflux disease, irritable bowel syndrome, osteoarthritis and degenerative disk disease as well as rheumatoid arthritis. PAST SURGICAL HISTORY: Significant for right knee arthroscopic surgery and lower back surgery, thyroid biopsy, PCI with stent deployment in 2006. FAMILY HISTORY: Positive for heart disease. SOCIAL HISTORY: He is , lives with his . He quit smoking in May 2019. Does not drink alcohol or use any recreational drugs. ALLERGIES: He is allergic to PENICILLIN, ORANGE JUICE and PINEAPPLE. MEDICATIONS: He is currently on following medications: He is on fexofenadine 60 mg daily, nitroglycerin 0.4 mg sublingually every 5 minutes x 3, metoprolol succinate 25 mg daily, Micardis 80 mg daily, aspirin 81 mg once a day, ibuprofen 800 mg daily, lactulose 30 grams daily, Protonix sodium 40 mg once a day for acid reflux and estradiol 2 mg p.o. daily. REVIEW OF SYSTEMS: As per history of present illness. PHYSICAL EXAMINATION: GENERAL: On examining him today, he was resting slightly propped up in bed, in no apparent respiratory distress. No pallor, jaundice, cyanosis or thyromegaly. No jugular venous distention. No lower limb edema. VITAL SIGNS: His heart rate is 69, blood pressure was 174/79, temperature was 97.8, respiratory rate was 18 and oxygen saturation was 96%. HEAD, EYES, EARS, NOSE AND THROAT: Showed normocephalic, atraumatic. NECK: Supple. HEART: Showed normal first and second heart sounds. No gallop or murmur. CHEST: Clear to auscultation. No crepitation or rhonchi. ABDOMEN: Distended, soft, nontender. No guarding or rigidity. No organomegaly. All hernial orifice intact. Bowel sounds normal. NEUROLOGIC: He was awake, alert, responding appropriately. All cranial nerves intact. EXTREMITIES: He moves extremities without difficulty, ambulates without assistance or assistive devices. LABORATORY DATA: Showed a white cell count of 10,000, hemoglobin 13, hematocrit 39, MCV 91, and platelet count 283,000 with normal manual differential. Chemistry showed a serum sodium of 139, potassium 3.6, chloride 102, bicarbonate 31, anion gap of 6, BUN 10, creatinine 1.1, estimated GFR was 66 mL per minute. His glucose was 111, calcium was 8.3, magnesium 2. Total bilirubin, AST, ALT, alkaline phosphatase were normal. Three sets of cardiac enzymes all of them showed troponin to be less than 0.017. Beta-natriuretic peptide was 836. Total protein was 7.4, albumin was 3.4. Lipase was 144. Prothrombin time, INR and aPTT were all normal. CT scan of the chest, abdomen and pelvis showed decreased previously seen thoracic aortic intramural hematoma, no evidence of dissection. He has an infrarenal abdominal aortic aneurysm, unchanged. He has new right upper lobe focal ground glass opacity, may represent focal atelectasis or scarring ____ nodule, has moderate pulmonary lymphedema, left thyroid nodule unchanged, bilateral adrenal nodules unchanged. ASSESSMENT AND PLAN: 1. In summary, this is a 73-year-old male patient admitted with poorly controlled hypertension. 2. Chest pain with negative cardiac enzyme. The patient will be transferred to [facility] to go straight to the flower shop laborer/designer for cardiac catheterization. Other medical problems include type B aortic intramural hematoma that has decreased in size. 3. Coronary artery disease, status post PCI with stent deployment to left anterior descending and chronic obstructive pulmonary disease and infrarenal abdominal aortic aneurysm at 3.4 cm. MONIQUE LAYNE MD DR: IRAM/josiah JOB#: [id number] / [id number]
[2019-08-02] MEDS ORDERED: LACTULOSE 20 GM/30 ML SOLUTION. PO SCH (09:00)
== END 2019-08-01 14:45 | disposition short-term general hospital (02) | DRG 304 ==
LOC: ER 19:00 → ICU 20:45
PROVIDERS: ADMIT Internal Medicine; ATTEND Internal Medicine
DX: I16.1 Hypertensive emergency (principal); I71.00 Dissection of unspecified site of aorta; I71.4 Abdominal aortic aneurysm, without rupture; I10 Essential (primary) hypertension; I25.10 Atherosclerotic heart disease of native coronary artery without angina pectoris; K21.9 Gastro-esophageal reflux disease without esophagitis; K57.90 Diverticulosis of intestine, part unspecified, without perforation or abscess without bleeding; M19.90 Unspecified osteoarthritis, unspecified site; M06.9 Rheumatoid arthritis, unspecified; E78.5 Hyperlipidemia, unspecified; F17.200 Nicotine dependence, unspecified, uncomplicated; K58.9 Irritable bowel syndrome, unspecified; J44.9 Chronic obstructive pulmonary disease, unspecified; Z95.5 Presence of coronary angioplasty implant and graft; Z88.0 Allergy status to penicillin
CPT/HCPCS: 36415; 71275; 74175; 80053; 82553; 83690; 83735; 83880; 84484; 85025; 85610; 85730; 93005; 94640; 96361; 96374; 96375; J0360; J2270; J3490; J7620; Q9967; 99285-25; J7030

== ENCOUNTER → 2019-10-30 | Outpatient (CLI) | payer MEDICARE, OTHER ==
[~2019-10-30] MED LIST changes: +LACT20PA3 PO; +METO-239 PO; +PANT40TA5 PO
--- NOTE | 2019-10-30 15:32 | RAD ---
EXAM: Chest, 2 views. HISTORY: Cough. COMPARISON: 07/31/2019 FINDINGS: 2 views of the chest are obtained. There is no infiltrate, pleural effusion or pneumothorax. The heart is normal in size. IMPRESSION: No acute pulmonary finding. Electronically signed by: Radha Barker MD (10/30/2019 3:29 PM) [facility]
== END | disposition home or self-care (01) ==
LOC: DXRAD 15:05
PROVIDERS: ATTEND Internal Medicine Cardiovascular Disease
DX: I25.10 Atherosclerotic heart disease of native coronary artery without angina pectoris (principal)
CPT/HCPCS: 71046

== ENCOUNTER → 2019-12-13 | Outpatient (CLI) | payer MEDICARE, OTHER ==
[~2019-12-13] MED LIST changes: +CONTRAST GIVEN MC PRN; +IOHEXOL 350 MG/ML 100 ML VIAL. IV ONE
[2019-12-13 08:19] LABS: CREATININE 1.2 mg/dL (0.7-1.3); GFR 59.3
--- NOTE | 2019-12-13 18:06 | RAD ---
PQRS Compliance Statement: One or more of the following individualized dose reduction techniques were utilized for this examination: 1. Automated exposure control 2. Adjustment of the mA and/or kV according to patient size 3. Use of iterative reconstruction technique CT ANGIO CHEST ABD PELVIS Clinical Indication: Abdominal aortic aneurysm. Comparison: CT angiogram chest and abdomen with contrast July 31, 2019. TECHNIQUE: Helical CT imaging of the chest is performed precontrast. Helical CT imaging of the chest abdomen and pelvis is performed after 90 cc of Omnipaque [address] angiogram protocol. 3-D MIP and volume rendering reconstructions of the aorta. Findings: No acute intramural hematoma of the thoracic aorta is identified on the precontrast images. There is no thoracic aortic dissection. The thoracic aorta is normal caliber. Aortic arch branches are patent. Probably mild narrowing at the origin of the left subclavian artery. There is mild chronic mural thrombus of the descending thoracic aorta. There is stable mild aneurysm of the infrarenal abdominal aorta, maximum diameter 3.3 cm. The celiac artery, SMA, main right and left renal arteries, and TRACE are patent. There is a small caliber accessory right renal artery. There is moderate chronic mural thrombus in the aneurysm. There is no aneurysm of the common iliac arteries. No high-grade narrowing of the iliac or visualized femoral arteries. Left thyroid goiter is stable. There is moderate bilateral gynecomastia, unchanged. There are several subcentimeter mediastinal lymph nodes. 1 cm right hilar lymph node is stable. No central pulmonary embolus is seen. There is coronary artery disease, three-vessel. The cardiac size is normal, no pericardial effusion. The central airways are patent. There is moderate upper lobe centrilobular and paraseptal emphysema. There is minimal atelectasis in the posterior lower lobes bilaterally. Previously described groundglass nodule in the right upper lobe near the major fissure has resolved. Stable 5 mm nodule in the left upper lobe, image 66 of series 9. There is a new 7 mm nodule in the left upper lobe, image 96. Scarring in the inferior lingula is stable. There is moderate fatty infiltration of the liver. Gallbladder and pancreas are normal. Calcified granulomas in the spleen. Stable adrenal nodules. No follow-up imaging is recommended per consensus recommendations based on imaging criteria. No hydronephrosis. No small bowel obstruction. There is moderate distal colon diverticulosis. No abdominal adenopathy or free fluid. There is stable moderate wall thickening of the urinary bladder. Coarse calcifications in the prostate. No pelvic free fluid. There is fat-containing left inguinal hernia. There is posterior fusion of L5-S1. There is grade 1 anterolisthesis of L5 on S1. No compression fracture is seen. IMPRESSION: 1. There is no thoracic aortic dissection. Stable infrarenal abdominal aortic aneurysm. 2. There is a new 7 mm noncalcified nodule in the left upper lobe. Suggest CT chest follow-up in 6 months. 3. Moderate emphysema. 4. Stable 1 cm right hilar lymph node. 5. Stable moderate wall thickening of the urinary bladder. Considerations include chronic bladder outlet obstruction or nonspecific cystitis. 6. Moderate distal colon diverticulosis. 7. Multiple other incidental findings as above. Electronically signed by: Noah Valverde MD (12/13/2019 6:03 PM) [id number]
== END | disposition home or self-care (01) ==
LOC: CT 07:40
PROVIDERS: ATTEND Specialist
DX: I71.4 Abdominal aortic aneurysm, without rupture (principal); I25.10 Atherosclerotic heart disease of native coronary artery without angina pectoris; J43.9 Emphysema, unspecified; J98.11 Atelectasis; R91.8 Other nonspecific abnormal finding of lung field; K76.0 Fatty (change of) liver, not elsewhere classified; D73.89 Other diseases of spleen; E27.8 Other specified disorders of adrenal gland; K57.30 Diverticulosis of large intestine without perforation or abscess without bleeding; E04.9 Nontoxic goiter, unspecified
CPT/HCPCS: 36415; 71275; 74174; 82565; Q9967

== ENCOUNTER → 2020-05-22 | Outpatient (CLI) | payer MEDICARE, OTHER ==
[~2020-05-22] MED LIST changes: -CONTRAST GIVEN MC PRN; -IOHEXOL 350 MG/ML 100 ML VIAL. IV ONE
--- NOTE | 2020-05-22 17:47 | RAD ---
EXAM: CT Chest without IV contrast INDICATION: Reason: LUNG NODULE / Spl. Instructions: / History: TECHNIQUE: Multi-detector row CT images were acquired from the thoracic inlet through the upper abdomen without the use of IV contrast. Sagittal and coronal images were acquired from the transaxial data. All CT scans performed at this facility utilize dose optimization techniques as appropriate to the exam, including the following: Automated exposure control and adjustment of the mA and/or KV according to patient size (this includes techniques or standardized protocols for targeted exams where dose is indication/reason for exam). COMPARISON: CT chest 12/13/2019 FINDINGS: The absence of IV contrast limits evaluation of soft tissue pathology. CARDIOVASCULAR: Multivessel dense coronary calcifications. MEDIASTINUM & SHIRA: No adenopathy or masses. Stable right hilar calcifications. Low-density dominant left thyroid lobe 2.7 cm nodule. LUNGS: Centrilobular emphysema. Interval resolution of the previously noted 7 mm nodule in the left upper lobe (compare image 121 this exam series 2 with image 45 of series 2 on the prior exam). Interval development of a new 8.5 mm posterior medial right upper lobe nodule (image 108 of series 2 this exam). Peripheral left upper lobe pleural parenchymal scarring (image 43 series 2) is new. No solid or semisolid component. Stable pleural-parenchymal scarring in the lingula near the fissure (image 235 of series 2) and stable 4 mm peripheral left lower lobe nodule near the diaphragm (image 335 of series 2) PLEURAL SPACE: No pleural effusions or pneumothorax. OSSEOUS & SOFT TISSUE: Unremarkable ABDOMEN: The visualized portions of the upper abdomen show diffuse fatty infiltration of the liver, and nodular fullness of the left adrenal gland suggestive of adenoma... IMPRESSION: 1. Resolved peripheral left upper lobe pulmonary nodule. 2. New posterior medial right upper lobe 8.5 mm pulmonary nodule and scarring in the left lung apex. Recommend follow-up in 6 months. Electronically signed by: Kaylen Lockwood MD (05/22/2020 5:44 PM) [id number]
== END | disposition home or self-care (01) ==
LOC: CT 11:25
PROVIDERS: ATTEND Internal Medicine Pulmonary Disease
DX: J43.2 Centrilobular emphysema (principal); E04.1 Nontoxic single thyroid nodule; R91.8 Other nonspecific abnormal finding of lung field; I25.10 Atherosclerotic heart disease of native coronary artery without angina pectoris; J98.4 Other disorders of lung
CPT/HCPCS: 71250

== ENCOUNTER 2020-09-13 08:43 | Inpatient (IN) | payer MEDICARE, OTHER ==
[~2020-09-13] VITALS: Ht 182.9 cm; Wt 93.9 kg
[2020-09-13] VITALS (12 sets, daily range): BP systolic 78–116; BP diastolic 34–66
[~2020-09-13 08:43] MED LIST changes: -PANT40TA5 PO; +PANT40TA6 PO
[2020-09-13] MEDS ORDERED: ONDANSETRON PF 4 MG/2 ML VIAL. ONE (09:05)
[2020-09-13] MEDS ORDERED: ACETAMINOPHEN 500 MG TABLET PO ONE (09:30)
[2020-09-13] MEDS ORDERED: IV NORMAL SALINE 1,000ML 1,000 ML IV ONE ×4 (09:30→18:30)
[2020-09-13] MEDS ORDERED: IBUPROFEN 600 MG TABLET. PO ONE (09:30)
[2020-09-13 09:42] LABS: BASO % 0 % (0-3); EOS % 1 % (0-3); HEMATOCRIT 39.4 % (39.0-53.0); HEMOGLOBIN 12.8 g/dL (13.0-17.5); LYMPH # 0.5 x10^3/uL (1.0-4.8); LYMPH % 17 % (24-48); MEAN CORPUSCULAR HEMOGLOBIN 30 pg (25-35); MEAN CORPUSCULAR HGB CONC 32 g/dL (31-37); MEAN CORPUSCULAR VOLUME 91 fL (79-100); MONO % 1 % (0-9); NEUT # 2.5 x10^3uL (1.8-7.7); NEUT % 81 % (31-73); PLATELET COUNT 232 x10^3/uL (140-400); RED BLOOD COUNT 4.31 x10^6/uL (4.30-5.70); RED CELL DISTRIBUTION WIDTH 14.2 % (11.5-14.5)
--- NOTE | 2020-09-13 09:45 | RAD ---
Chest AP portable 09/13/2020. Reason for exam: Shortness of breath. Cough and fever. Comparison is made with a study of 10/30/2019. Depth of inspiration is much shallower. Haziness projects laterally on each side. Some of this could relate to overlying breast or pectoralis tissue, although early infiltrates may be developing. There is no apparent pleural fluid. The heart does not appear enlarged. IMPRESSION: Possible early bilateral infiltrates. Electronically signed by: Mynor Haider Jr., MD (09/13/2020 9:43 AM) [facility]
[2020-09-13 09:51] LABS: CALCIUM 9.2 mg/dL (8.5-10.1); CREATININE 1.5 mg/dL (0.7-1.3); GFR 45.7; POTASSIUM 3.8 mmol/L (3.5-5.1)
[2020-09-13 09:57] LABS: ALBUMIN/GLOBULIN RATIO 0.7 (1.0-1.7); MAGNESIUM 1.7 mg/dL (1.8-2.4); TOTAL BILIRUBIN 0.9 mg/dL (0.2-1.0); TOTAL PROTEIN 7.4 g/dL (6.4-8.2)
[2020-09-13] MEDS ORDERED: ONDANSETRON PF 4 MG/2 ML VIAL. IVP ONE (10:15)
--- NOTE | 2020-09-13 10:16 | PHYS DOC ---
Past History Past Medical History: Asthma, CAD, Heart Disease, Hypertension Additional Past Medical Histor: abdominal aneurysm, COVID Past Surgical History: Tonsillectomy, Other Additional Past Surgical Histo: Right leg, Lumbar, cardiac stent Smoking: Cigarettes Alcohol Use: Occasionally Drug Use: None General Adult EDM: Chief Complaint: MULTIPLE COMPLAINTS HPI: HPI: Patient is a 75-year-old male who was brought here by EMS from home due to nausea vomiting, abdominal pain, fever and chill, having trouble breathing for the last 5 days. Patient was status positive for COVID-19 last month. He was cleared to be off quarantine by his family doctor recently. Patient denies any chest pain. Patient has some nonproductive cough. He also has shortness of air. He has not been able to urinate much today. He vomitted bilious content when he got here. Review of Systems: Review of Systems: Constitutional: Positive for fever or chills Eyes: Denies change in visual acuity HENT: Denies nasal congestion or sore throat Respiratory: Positive for cough and shortness of breath Cardiovascular: Denies chest pain or edema GI: Positive for abdominal pain, nausea, vomiting, no bloody stools or diarrhea : Denies dysuria Musculoskeletal: Denies back pain or joint pain Integument: Denies rash Neurologic: Denies headache, focal weakness or sensory changes Endocrine: Denies polyuria or polydipsia Lymphatic: Denies swollen glands Psychiatric: Denies depression or anxiety Current Medications: Current Meds: Current Medications Medications (Trade) Dose Ordered Sig/Wiliam Start Time Stop Time Status Last Admin Dose Admin Acetaminophen (Tylenol) 1,000 mg 1X ONCE 09/13/20 09:30 09/13/20 09:31 DC Ibuprofen (Motrin) 600 mg 1X ONCE 09/13/20 09:30 09/13/20 09:31 DC Levofloxacin/ Dextrose 150 ml @ 100 mls/hr 1X ONCE 09/13/20 10:00 09/13/20 11:29 Ondansetron HCl (Zofran) 8 mg 1X ONCE 09/13/20 10:15 09/13/20 10:16 Sodium Chloride 1,000 ml @ 1,000 mls/hr 1X ONCE 09/13/20 09:45 09/13/20 10:44 Allergies: Allergies: Allergies Coded Allergies Type Severity Reaction Last Updated Verified Penicillins Allergy Unknown 05/05/14 Yes orange juice Allergy Unknown 12/15/14 Yes pineapple Allergy Unknown 12/15/14 Yes Physical Exam: PE: Constitutional: Well developed, well nourished, no acute distress, non-toxic appearance. [] HENT: Normocephalic, atraumatic, bilateral external ears normal, oropharynx moist, no oral exudates, nose normal. [] Eyes: PERRLA, EOMI, conjunctiva normal, no discharge. [] Neck: Normal range of motion, no tenderness, supple, no stridor. [] Cardiovascular:Heart rate regular rhythm, no murmur [] Lungs & Thorax: Bilateral breath sounds clear to auscultation [] Abdomen: Bowel sounds normal, soft, no tenderness, no masses, no pulsatile masses. [] Skin: Warm, dry, no erythema, no rash. [] Back: No tenderness, no CVA tenderness. [] Extremities: No tenderness, no cyanosis, no clubbing, ROM intact, no edema. [] Neurologic: Alert and oriented X 3, normal motor function, normal sensory function, no focal deficits noted. [] Psychologic: Affect normal, judgement normal, mood normal. [] Current Patient Data: Labs: Laboratory Tests Test 09/13/20 09:11 White Blood Count 3.0 x10^3/uL (4.0-11.0) L Red Blood Count 4.31 x10^6/uL (4.30-5.70) Hemoglobin 12.8 g/dL (13.0-17.5) L Hematocrit 39.4 % (39.0-53.0) Mean Corpuscular Volume 91 fL (79-100) Mean Corpuscular Hemoglobin 30 pg (25-35) Mean Corpuscular Hemoglobin Concent 32 g/dL (31-37) Red Cell Distribution Width 14.2 % (11.5-14.5) Platelet Count 232 x10^3/uL (140-400) Neutrophils (%) (Auto) 81 % (31-73) H Lymphocytes (%) (Auto) 17 % (24-48) L Monocytes (%) (Auto) 1 % (0-9) Eosinophils (%) (Auto) 1 % (0-3) Basophils (%) (Auto) 0 % (0-3) Neutrophils # (Auto) 2.5 x10^3uL (1.8-7.7) Lymphocytes # (Auto) 0.5 x10^3/uL (1.0-4.8) L Monocytes # (Auto) 0.0 x10^3/uL (0.0-1.1) Eosinophils # (Auto) 0.0 x10^3/uL (0.0-0.7) Basophils # (Auto) 0.0 x10^3/uL (0.0-0.2) Sodium Level 135 mmol/L (136-145) L Potassium Level 3.8 mmol/L (3.5-5.1) Chloride Level 100 mmol/L (98-107) Carbon Dioxide Level 26 mmol/L (21-32) Anion Gap 9 (6-14) Blood Urea Nitrogen 11 mg/dL (8-26) Creatinine 1.5 mg/dL (0.7-1.3) H Estimated GFR (Cockcroft-Gault) 45.7 BUN/Creatinine Ratio 7 (6-20) Glucose Level 128 mg/dL (70-99) H Lactic Acid Level 3.2 mmol/L (0.4-2.0) H Calcium Level 9.2 mg/dL (8.5-10.1) Magnesium Level 1.7 mg/dL (1.8-2.4) L Total Bilirubin 0.9 mg/dL (0.2-1.0) Aspartate Amino Transferase (AST) 33 U/L (15-37) Alanine Aminotransferase (ALT) 28 U/L (16-63) Alkaline Phosphatase 160 U/L (46-116) H Troponin I Quantitative < 0.017 ng/mL (0-0.055) Total Protein 7.4 g/dL (6.4-8.2) Albumin 3.0 g/dL (3.4-5.0) L Albumin/Globulin Ratio 0.7 (1.0-1.7) L Lipase 74 U/L (73-393) Vital Signs: Vital Signs Date Time Temp Pulse Resp B/P (MAP) Pulse Ox O2 Delivery O2 Flow Rate FiO2 09/13/20 08:45 100.2 130 30 141/74 (96) 96 Nasal Cannula 6.0 EKG: EKG: EKG was done at 924, heart rate 138 bpm, sinus tachycardia, no ST segment elevation. Radiology/Procedures: Radiology/Procedures: [][address] [address] IMAGING REPORT Signed PATIENT: TOÑA EDWARDS ACCOUNT: [id number] : 1945 LOCATION: ER AGE: 75 SEX: M EXAM STATUS: REG ER ORD. PHYSICIAN: ARANZA BIRD DO REASON: SOA, COUGH, FEVER PROCEDURE: PORTABLE CHEST 1V Chest AP portable 09/13/2020. Reason for exam: Shortness of breath. Cough and fever. Comparison is made with a study of 10/30/2019. Depth of inspiration is much shallower. Haziness projects laterally on each side. Some of this could relate to overlying breast or pectoralis tissue, although early infiltrates may be developing. There is no apparent pleural fluid. The heart does not appear enlarged. IMPRESSION: Possible early bilateral infiltrates. Electronically signed by: Syeda Haider Jr., MD (09/13/2020 9:43 AM) [facility] DICTATED AND SIGNED BY: SYEDA HAIDER Jr, MD DATE: 09/13/20 0943 CC: ARANZA BIRD DO; YONY ARTEAGA MD ~MTH0 [address] [address] IMAGING REPORT Signed PATIENT: TOÑA EDWARDS ACCOUNT: [id number] : 1945 LOCATION: ER AGE: 75 SEX: M EXAM STATUS: REG ER ORD. PHYSICIAN: ARANZA BIRD DO REASON: ABDOMINAL PAIN PROCEDURE: CT ABDOMEN PELVIS WO CONTRAST CT abdomen and pelvis without contrast 09/13/2020. Reason for exam: Abdominal pain. Noncontrast images were performed through the abdomen and pelvis. Exposure: One or more of the following individualized dose reduction techniques were utilized for this examination: 1. Automated exposure control 2. Adjustment of the mA and/or kV according to patient size 3. Use of iterative reconstruction technique. Comparison is made with prior CTA study of 12/13/2019. FINDINGS: There is mild dependent atelectasis in the right lower lobe. The lung bases otherwise are clear. There is diffuse fatty infiltration of the liver. No focal lesion is identified. The spleen appears normal. The kidneys show no apparent solid mass or obstruction. There is a small cortical cysts inferiorly on the left. There seems to be greater perinephric edema on the left compared to the prior study. The adrenal glands are not enlarged. The pancreas appears normal. No retroperitoneal or mesenteric adenopathy is seen. The abdominal aorta is mildly dilated distally, but similar to the prior study. It measures about 3.1 cm AP. Images through the pelvis show no abnormality of the distal ureters or bladder. No pelvic or inguinal adenopathy is seen. There is a small fat-containing left inguinal hernia. There is no separate pelvic mass or inflammatory process. There is some diverticulosis of the sigmoid colon without evidence of acute diverticulitis. IMPRESSION: No definite acute findings. There is suggestion of greater left side perinephric edema. This is nonspecific. No ureteral stone or obstruction is seen. A recently passed stone is possible, as is UTI. No other cause for pain is identified. Electronically signed by: Syeda Haider Jr., MD (09/13/2020 10:58 AM) [facility] DICTATED AND SIGNED BY: SYEDA HAIDER Jr, MD DATE: 09/13/20 1058 CC: ARANZA BIRD DO; YONY ARTEAGA MD ~MTH0 0 Heart Score: Risk Factors: Risk Factors: DM, Current or recent (<one month) smoker, HTN, HLP, family history of CAD, obesity. Risk Scores: Score 0 - 3: 2.5% MACE over next 6 weeks - Discharge Home Score 4 - 6: 20.3% MACE over next 6 weeks - Admit for Clinical Observation Score 7 - 10: 72.7% MACE over next 6 weeks - Early Invasive Strategies Course & Med Decision Making: Course & Med Decision Making Pertinent Labs and Imaging studies reviewed. (See chart for details) Patient is a 75-year-old male who was evaluated in the ER due to cough, trouble breathing, abdominal pain. Patient was found to be in severe sepsis, pneumonia, has COVID-19 infection since last month. She was given IV fluids, 2 L normal saline in the ER. His vital signs improved. Patient was given 750 mg of Levaquin IV. Discussed with Dr. Beach who agreed to admit the patient to ICU. Nichelle Disclaimer: Nichelle Disclaimer: This electronic medical record was generated, in whole or in part, using a voice recognition dictation system. Departure Departure: Impression: Primary Impression: Severe sepsis Additional Impressions: COVID-19 UTI (urinary tract infection) Pneumonia Abdominal pain Disposition: 09 ADMITTED INPT THIS HOSP Admitting Physician: Alexandr Beach Condition: IMPROVED Referrals: YONY ARTEAGA MD (PCP) Sepsis Assessment: Date and Time of Assessment Date: Sep 13, 2020 Time: 14:30 Vital Signs Vital Signs Vital Signs Date Time Temp Pulse Resp B/P (MAP) Pulse Ox O2 Delivery O2 Flow Rate FiO2 09/13/20 15:02 97.9 87 18 104/53 (70) 96 Nasal Cannula 3.0 Respirations Respiratory Effort: Normal, Non-Labored Cardiovascular HEART: S1 and S2 normal Lung Sounds Breath Sounds: Crackles Capillary Refill Capillary Refill: Lt Hand < 3 seconds Peripheral Pulse Pulse Location: Monitor Pulse Strength: Normal (2+) Pulse Assessment Method: NIBP Integumentary Skin: Warm, Dry Skin Moisture: Moist Skin Turgor: Normal Skin Color: warm, dry Fingernail Color: WNL ARANZA BIRD DO Sep 13, 2020 10:16
[2020-09-13 10:26] LABS: INFLUENZA A PATIENT NEGATIVE (NEGATIVE); INFLUENZA B PATIENT NEGATIVE (NEGATIVE)
--- NOTE | 2020-09-13 11:01 | RAD ---
CT abdomen and pelvis without contrast 09/13/2020. Reason for exam: Abdominal pain. Noncontrast images were performed through the abdomen and pelvis. Exposure: One or more of the following individualized dose reduction techniques were utilized for this examination: 1. Automated exposure control 2. Adjustment of the mA and/or kV according to patient size 3. Use of iterative reconstruction technique. Comparison is made with prior CTA study of 12/13/2019. FINDINGS: There is mild dependent atelectasis in the right lower lobe. The lung bases otherwise are clear. There is diffuse fatty infiltration of the liver. No focal lesion is identified. The spleen appears normal. The kidneys show no apparent solid mass or obstruction. There is a small cortical cysts inferiorly on the left. There seems to be greater perinephric edema on the left compared to the prior study. The adrenal glands are not enlarged. The pancreas appears normal. No retroperitoneal or mesenteric adenopathy is seen. The abdominal aorta is mildly dilated distally, but similar to the prior study. It measures about 3.1 cm AP. Images through the pelvis show no abnormality of the distal ureters or bladder. No pelvic or inguinal adenopathy is seen. There is a small fat-containing left inguinal hernia. There is no separate pelvic mass or inflammatory process. There is some diverticulosis of the sigmoid colon without evidence of acute diverticulitis. IMPRESSION: No definite acute findings. There is suggestion of greater left side perinephric edema. This is nonspecific. No ureteral stone or obstruction is seen. A recently passed stone is possible, as is UTI. No other cause for pain is identified. Electronically signed by: Mynor Haider Jr., MD (09/13/2020 10:58 AM) [facility]
[2020-09-13 12:58] LABS: BACTERIA,URINE MANY /HPF (0-FEW); BILIRUBIN,URINE NEG (NEG); CLARITY,URINE HAZY; COLOR,URINE YELLOW; GLUCOSE,URINE NEG (NEG); NITRITE,URINE NEG (NEG); SQUAMOUS EPITHELIAL CELL,UR FEW /LPF; UROBILINOGEN,URINE 0.2 mg/dL (0.2 mg/dL)
[2020-09-13] MEDS ORDERED: ONDANSETRON PF 4 MG/2 ML VIAL. IVP PRN ×2 (13:30→16:45)
[2020-09-13] MEDS ORDERED: ACETAMINOPHEN 325 MG TABLET PO PRN (13:30)
--- NOTE | 2020-09-13 13:43 | EKG ---
[facility] ED [facility] [address] [place] [id number] Test Date: 2020-09-13 Test Time: 09:24:21 Pat Name: TOÑA EDWARDS Department: Room: Gender: M Hotel Desk Clerk: : 1945 Requested By: ARANZA BIRD Order Number: [id number] Reading MD: Measurements Intervals [place] Rate: 138 P: ID: QRS: -32 QRSD: 76 T: 44 QT: 292 QTc: 442 Interpretive Statements IRREGULAR RHYTHM, NO P-WAVE FOUND ABNORMAL LEFT AXIS DEVIATION LOW LIMB LEAD VOLTAGE ABNORMAL ECG RI6.02 No previous ECG available for comparison
[2020-09-13] MEDS: IV NORMAL SALINE 1,000ML 1,000 ML IV SCH ×2 (14:45→22:50)
[2020-09-13] MEDS ORDERED: NITROGLYCERIN SUBLINGUAL 0.4 MG BOTTLE OF 25. SL PRN (16:45)
[2020-09-13] MEDS: LIDOCAINE (700MG/PATCH) PATCH. TD SCH (16:53)
--- NOTE | 2020-09-13 17:45 | HP ---
ADMIT DATE: 09/13/2020 HISTORY OF PRESENT ILLNESS: The patient is a 75-year-old male patient who was brought by the EMS from home with recurrent bouts of nausea, vomiting, abdominal pain, fever and chills, having trouble breathing for the last 5 days. The patient was positive for COVID-19. According to him, he was exposed on 07/15/2020, started having symptoms on 07/19/2020 and was diagnosed on 08/05, and was cleared by the Health Department on 08/18/2020. He was cleared of quarantine by his family doctor. He denied any chest pain. He has some nonproductive cough. He also complained of difficulty urinating for the last 5 or 6 days and also having difficulty defecating. He said his stream is very weak, has frequency and has nocturia and is waking up to go to the bathroom every hour, but denied any hematuria. He was extensively evaluated in the Emergency Room as he was febrile, tachypneic, tachycardic when he arrived. His lab work showed he has leukopenia and his chemistry showed that he has lactic acidosis and mildly impaired kidney function with creatinine up to 1.5. His urinalysis showed that his urine was yellow, hazy with a pH of 1.020, there was small amount of protein. The urine was negative for glucose, ketones, there was moderate amount of blood, negative for nitrite, there was trace leukocyte esterase, 3-5 rbc's, 11-20 wbc's, and too many bacteria. His influenza A and B were negative. He has had a chest x-ray, which showed that the patient has possible early bilateral infiltrate. He had had a CT scan of the abdomen and pelvis showed that no definite acute finding. There is suggestion of greater left side perinephric edema. This is nonspecific. No ureteral stones or obstruction is seen. A recently passed stone is possible as is UTI. No other causes of pain is identified. The patient was admitted with severe sepsis, urinary tract infection, questionable pneumonia and abdominal pain. He was also swabbed for possible COVID-19. PAST MEDICAL HISTORY: Significant for COPD, hypertension, hyperlipidemia, coronary artery disease, status post myocardial infarction with PCI and stent deployment, osteoarthritis, chronic low back pain. He has also a dissecting aortic aneurysm. PAST SURGICAL HISTORY: Significant for tonsillectomy, adenoidectomy, appendectomy, right knee arthroscopic surgery. He also has L5-S1 fusion. ALLERGIES: PENICILLIN, ORANGE JUICE, PINEAPPLE, ERYTHROMYCIN, AND STATINS MEDICATIONS: He is currently on following medications: He is on Micardis 80 mg tablet once a day, metoprolol succinate 25 mg once a day, furosemide 20 mg once a day, Flonase nasal spray 2 sprays to each nostril once a day, Advair Diskus 100/50 one inhalation twice a day. He is on Kristalose 30 mL daily. He is on Estrace 2 tablets 4 mg at noon and omeprazole 20 mg daily. He is on enteric-coated aspirin 1 tablet once a day, Percocet 5/325 one tablet as needed at nighttime for pain. He is on Nitrostat 0.4 mg daily. FAMILY HISTORY: His older brother secondary to intracranial hemorrhage as he was on a blood thinner for heart valve replacement. He has 2 younger sisters, one has diabetes and the other has vertigo. His parents at an older age. His father at the age of 98 and mother at age of 97. SOCIAL HISTORY: He is , has 1 son. Quit smoking in 2019. He drinks alcohol very occasionally. Does not use any drugs. 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 REVIEW OF SYSTEMS: The patient denied any blurring of vision, cataract, glaucoma or macular degeneration. Denied any earache, tinnitus or sensorineural deafness. Denied any nosebleeds, stuffy nose or postnasal drip. Denied any sore throat, sore tongue, toothache, hoarseness of voice or difficulty swallowing. Did have nausea, vomiting. Did complain of constipation. Did complain of dysuria and difficulty urinating. Denied any chest pain. Did complain of shortness of breath. PHYSICAL EXAMINATION: GENERAL: On arrival to the Emergency Room, there was no pallor, jaundice, cyanosis or thyromegaly. No jugular venous distention. No lower limb edema. VITAL SIGNS: His heart rate was 130, blood pressure was 141/74, temperature was 100.2, respiratory rate was 30 and oxygen saturation was 96% on 6 liters of oxygen. HEAD, EYES, EARS, NOSE AND THROAT: Showed normocephalic, atraumatic. NECK: Supple. HEART: Showed normal first and second heart sounds. No gallop, rub or murmur. CHEST: Shows central trachea, equal bilateral chest expansion, air entry, vesicular sounds. I could not really appreciate any crepitation or rhonchi. ABDOMEN: Distended, soft, nontender. NEUROLOGIC: He was awake, alert, responding appropriately. All cranial nerves intact. EXTREMITIES: He moves extremities without difficulty. LABORATORY DATA: Showed a white cell count of 3000, hemoglobin 12.8, hematocrit 39, MCV 91, and platelet count 232,000. His chemistry showed a serum sodium 135, potassium 3.8, chloride 100, bicarbonate 26, anion gap of 9, BUN 11, creatinine 1.5, estimated GFR was 45 mL per minute. His glucose was 128, lactic acid was 3.2, calcium was 9.2, magnesium was 1.7. Total bilirubin, AST, ALT, alkaline phosphatase were normal. Total protein was 7.4, albumin 3. Lipase was 74. His urinalysis showed the urine was yellow, hazy with a pH of 6, specific gravity of 1.020. There was small amount of protein. The urine was negative for glucose, ketones, blood. There was moderate amount of blood, negative for nitrite, trace of leukocyte esterase, 3-5 rbc's, 11-20 wbc's. His influenza A and B were negative. ASSESSMENT AND PLAN: The patient was admitted with severe sepsis secondary to probably COVID-19 pneumonia and urinary tract infection as well as pneumonia and also abdominal pain. The patient has received a total of 2000 mL of normal saline and was started on IV Levaquin and was admitted to the ICU for further evaluation and treatment. He was swabbed for coronavirus by PCR. My plan is to reconcile all his medication. We will monitor his lab work. MONIQUE LAYNE MD DR: IRAM/josiah JOB#: [id number] / [id number]
[2020-09-13] MEDS ORDERED: IV NORMAL SALINE 500ML 500 ML IV ONE (18:30)
[2020-09-13] MEDS: PATCH REMOVAL. MC SCH (20:57)
[2020-09-13] MEDS: METOPROLOL SUCC 24HR ER 25 MG TAB.ER.24H. PO SCH (20:57)
[2020-09-14] VITALS (28 sets, daily range): BP systolic 81–127; BP diastolic 38–68
[2020-09-14] MEDS: IV NORMAL SALINE 1,000ML 1,000 ML IV SCH (04:55)
[2020-09-14 07:30] LABS: BASO % 0 % (0-3); EOS % 0 % (0-3); HEMATOCRIT 31.4 % (39.0-53.0); LYMPH # 0.8 x10^3/uL (1.0-4.8); LYMPH % 3 % (24-48); MEAN CORPUSCULAR HEMOGLOBIN 29 pg (25-35); MEAN CORPUSCULAR HGB CONC 32 g/dL (31-37); MEAN CORPUSCULAR VOLUME 91 fL (79-100); MONO % 4 % (0-9); NEUT # 23.5 x10^3uL (1.8-7.7); NEUT % 93 % (31-73); PLATELET COUNT 136 x10^3/uL (140-400); RED BLOOD COUNT 3.43 x10^6/uL (4.30-5.70); RED CELL DISTRIBUTION WIDTH 14.9 % (11.5-14.5)
[2020-09-14 07:32] LABS: ALBUMIN 2.3 g/dL (3.4-5.0); ALBUMIN/GLOBULIN RATIO 0.6 (1.0-1.7); CALCIUM 7.6 mg/dL (8.5-10.1); CREATININE 1.8 mg/dL (0.7-1.3); GFR 37.1; POTASSIUM 4.4 mmol/L (3.5-5.1); TOTAL BILIRUBIN 0.5 mg/dL (0.2-1.0); TOTAL PROTEIN 5.9 g/dL (6.4-8.2)
--- NOTE | 2020-09-14 07:45 | RAD ---
INDICATION: Reason: SHORTNESS OF BREATH, COVID / Spl. Instructions: / History: COMPARISON: September 13, 2020 FINDINGS: Single view of chest obtained. Cardiac silhouette is similar to prior. Mild interstitial and groundglass opacities bilaterally appear slightly increased from prior. IMPRESSION: * Slight increase in interstitial and groundglass opacities bilaterally could be from edema or interstitial infiltrate. Electronically signed by: Fahad Hernandez MD (09/14/2020 7:42 AM) [id number]
[2020-09-14 08:34] LABS: % LYMPHS 3 % (24-48); % METAS 10 % (0-0); % MONOS 8 % (0-10); % MYELOS 3 % (0-0); % SEGS 36 % (35-66); PLT ESTIMATE DECREASED (ADEQUATE)
[2020-09-14 08:35] LABS: OVALOCYTES PRESENT; TOXIC GRANULATION PRESENT; TOXIC VACUOLATION PRESENT
[2020-09-14 08:38] LABS: % BANDS 40 % (0-9)
[2020-09-14] MEDS: LACTULOSE 20 GM/30 ML SOLUTION. PO SCH (09:00)
[2020-09-14] MEDS: METOPROLOL SUCC 24HR ER 25 MG TAB.ER.24H. PO SCH ×2 (09:00→20:26)
[2020-09-14] MEDS: LOSARTAN 50 MG TABLET. PO SCH (09:00)
[2020-09-14 09:44] LABS: BGAS PH 7.4 (7.35-7.46)
[2020-09-14] MEDS ORDERED: levoFLOXacin PER PHARMACY 1 EACH. MC PRN (09:45)
[2020-09-14] MEDS ORDERED: MORPHINE SULFATE 2 MG/ML DISP.SYRIN. IV PRN (10:15)
[2020-09-14] MEDS: CETIRIZINE HCL 10 MG TABLET PO SCH (10:20)
[2020-09-14] MEDS: ASPIRIN CHEWABLE 81 MG TABLET. PO SCH (10:21)
[2020-09-14] MEDS: IPRATROPIUM/ALBUTEROL 20/100mcg/INH INHALER. INH SCH ×4 (10:21→20:18)
[2020-09-14] MEDS: PANTOPRAZOLE 40 MG TABLET. PO SCH (10:21)
[2020-09-14] MEDS: ENOXAPARIN 40 MG/0.4 ML SYRINGE. SQ SCH ×2 (10:21→20:26)
[2020-09-14] MEDS: LIDOCAINE (700MG/PATCH) PATCH. TD SCH (10:24)
[2020-09-14] MEDS ORDERED: REMDESIVIR LOAD in IV NORMAL SALINE 250ML TV IV ONE (10:30)
[2020-09-14] MEDS: NOREPINEPHRINE BITARTRATE 8 MG in IV DEXTROSE 5% 250 ML IV PRN (10:42)
[2020-09-14] MEDS: MEROPENEM 1 GM in IV NORMAL SALINE 100ML 100 ML IV SCH ×2 (10:42→23:17)
[2020-09-14] MEDS: DEXAMETHASONE SOD PHOS 4 MG/ML VIAL. IVP SCH (12:23)
[2020-09-14] MEDS: ESTRADIOL 1 MG TABLET PO SCH (12:25)
[2020-09-14] MEDS: oxyCODONE/APAP 5/325 1 TAB TABLET PO PRN ×3 (14:36→23:18)
[2020-09-14 17:59] LABS: CALCIUM 7.7 mg/dL (8.5-10.1); CREATININE 1.6 mg/dL (0.7-1.3); GFR 42.5; POTASSIUM 4.2 mmol/L (3.5-5.1)
[2020-09-14] MEDS: PATCH REMOVAL. MC SCH (20:27)
[2020-09-15] VITALS (27 sets, daily range): BP systolic 92–139; BP diastolic 42–97
[2020-09-15] MEDS: NOREPINEPHRINE BITARTRATE 8 MG in IV DEXTROSE 5% 250 ML IV PRN (01:52)
[2020-09-15] MEDS: oxyCODONE/APAP 5/325 1 TAB TABLET PO PRN ×4 (03:52→21:26)
[2020-09-15] MEDS: PANTOPRAZOLE 40 MG TABLET. PO SCH (07:30)
--- NOTE | 2020-09-15 07:32 | PN ---
DATE: 09/14/2020 SUBJECTIVE: The patient is resting, slightly propped up in bed, in no apparent distress. On questioning him, he continued to have low back pain and perineal and perianal pain. His blood pressure has been very labile and low so we did start him on Levophed and his blood pressure now is about 105/48. His urine culture showed no growth so far; however, his blood culture showed that all 4 bottles are positive for gram-negative rods. The identification and sensitivity is still pending at the time of this dictation. We did add meropenem 500 mg IV q. 8 hourly. By the time I saw him this afternoon, he was resting slightly propped up in bed comfortably, in no apparent distress. He was pale. No jaundice, cyanosis or thyromegaly. No jugular venous distention. No limb edema. PHYSICAL EXAMINATION VITAL SIGNS: His heart rate was 77. Blood pressure was 105/48, temperature was 98, respiratory rate was 16 and oxygen saturation was 92% on 3 liters of oxygen. HEAD, EYES, EARS, NOSE AND THROAT: Showed normocephalic, atraumatic. NECK: Supple. HEART: Normal first and second heart sounds. No gallop or murmur. CHEST: Showed central trachea, equal bilateral chest expansion, air entry, vesicular breath sounds. No crepitation or rhonchi. ABDOMEN: Distended, soft, nontender. There is no guarding or rigidity. No organomegaly. All hernial orifices intact. Bowel sounds normal. NEUROLOGIC: He was awake, alert, responding appropriately. All his cranial nerves are intact. He moves extremities without difficulty. He has an indwelling Argueta catheter. His intake and output are incompletely recorded. LABORATORY DATA: His lab work this morning showed white cell count 25,400 and hemoglobin 10, hematocrit 31. MCV 91 and platelet count of 136,000. His chemistry this morning showed serum sodium 140, potassium 4.4, chloride 106, bicarbonate 23, anion gap of 11. BUN 17, creatinine was 1.8. Estimated GFR was 37 mL per minute. His glucose was 63, calcium was 7.6. Lactic acid was down to 2. His total bilirubin, AST, ALT, alkaline phosphatase were normal. His beta natriuretic peptide was 15,800. Total protein 5.9, albumin 2.3, troponin 0.179. His COVID-19 by PCR was positive. ASSESSMENT: 1. COVID-19 pneumonia. 2. Severe abdominal pain, mostly in the perianal and perineal area. 3. Sepsis with growth of Gram-negative bacteria in 4/4 bottles. 4. The patient has multiple other medical problems including: A. COPD. B. Hyperlipidemia. C. Hypertension. D. Coronary artery disease status post myocardial infarction with PCI and stent deployment. E. Osteoarthritis. F. Chronic low back pain. PLAN: My plan is to continue with IV fluid. Continue the IV antibiotic in the form of meropenem as well as levofloxacin. Continue with dexamethasone. Continue with Remdesivir. Continue with Combivent. I will definitely hold his losartan and metoprolol and given his sepsis, COVID-19 pneumonia and probably prostatitis as well as acute kidney injury, we will arrange for him to be transferred to [facility]. MONIQUE LAYNE MD DR: IRAM/josiah JOB#: [id number] / [id number]
--- NOTE | 2020-09-15 08:11 | PDOC2 ---
CARDIAC CONSULT DATE OF CONSULT DOS: DATE: 09/15/20 TIME: 08:08 REASON FOR CONSULT Reason for Consult Elevated troponin and BNP REFERRING PHYSICIAN Referring Physician Dr. Beach SOURCE Source: Chart review, Patient HPI History of Present Illness This is a 75 yo male who presented secondary to nausea/vomiting, difficult urinating, and syncopal episode, and shortness of breath. Was + for COVID last month. Patient reports difficulty urinating for the last week. This past Monday, was straining and urinating and has subsequent syncopal episode. Decided to come to the ED for further evaluation any treatment. Had episode of vomiting upon arrival. Was also very short of breath. Breathing improved with inhaler, breat balaji treatments. Blood pressure was also low and was given IV fluid and started on levophed gtt. Argueta catheter was place. Reports testing + for COVID 08/07. Reports feeling much better this am. PAST MEDICAL HISTORY Past Medical History Cardiovascular: CAD, HTN, Other ( Infrarenal abdominal aortic aneurysm, Type B aortic intramural hematoma) Pulmonary: Asthma, COPD, Pneumonia GI: Diverticulosis, GERD, Irritable bowel disease Musculoskeletal: Osteoarthritis, Other (DDD) Rheumatologic: Rheumatoid arthritis PAST SURGICAL HISTORY Past Surgical History Arthroscopy (right knee), Other (lower back surgery; thyroid biopsy; PCI/stent ) FAMILY HISTORY Family History: Heart Disease SOCIAL HISTORY Social History Smoke: Quit (05/2019) ALCOHOL: none Drugs: None Lives: with Family CURRENT MEDICATIONS Current Medications Current Medications Ondansetron HCl (Zofran) 4 mg STK-MED ONCE .ROUTE ; Start 09/13/20 at 09:05; Stop 09/13/20 at 09:05; Status DC Sodium Chloride 1,000 ml @ 1,000 mls/hr 1X ONCE IV Last administered on 09/13/20at 10:24; Start 09/13/20 at 09:30; Stop 09/13/20 at 10:29; Status DC Acetaminophen (Tylenol) 1,000 mg 1X ONCE PO Last administered on 09/13/20at 10:23; Start 09/13/20 at 09:30; Stop 09/13/20 at 09:31; Status DC Ibuprofen (Motrin) 600 mg 1X ONCE PO Last administered on 09/13/20at 10:23; Start 09/13/20 at 09:30; Stop 09/13/20 at 09:31; Status DC Sodium Chloride 1,000 ml @ 1,000 mls/hr 1X ONCE IV Last administered on 09/13/20at 10:25; Start 09/13/20 at 09:45; Stop 09/13/20 at 10:44; Status DC Levofloxacin/ Dextrose 150 ml @ 100 mls/hr 1X ONCE IV Last administered on 09/13/20at 10:24; Start 09/13/20 at 10:00; Stop 09/13/20 at 11:29; Status DC Ondansetron HCl (Zofran) 8 mg 1X ONCE IVP Last administered on 09/13/20at 10:26; Start 09/13/20 at 10:15; Stop 09/13/20 at 10:16; Status DC Sodium Chloride 1,000 ml @ 1,000 mls/hr 1X ONCE IV Last administered on 09/13/20at 10:54; Start 09/13/20 at 10:45; Stop 09/13/20 at 11:44; Status DC Ondansetron HCl (Zofran) 4 mg PRN Q4HRS PRN IVP NAUSEA/VOMITING; Start 09/13/20 at 13:30; Stop 09/13/20 at 16:56; Status DC Sodium Chloride 1,000 ml @ 100 mls/hr Q10H IV Last administered on 09/14/20at 04:55; Start 09/13/20 at 13:30; Stop 09/14/20 at 13:29; Status DC Acetaminophen (Tylenol) 650 mg PRN Q4HRS PRN PO FEVER > 100.3'F Last administered on 09/14/20at 10:20; Start 09/13/20 at 13:30; Stop 09/14/20 at 13:29; Status DC Aspirin (Aspirin Chewable) 81 mg DAILY PO Last administered on 09/14/20at 10:21; Start 09/14/20 at 09:00 Metoprolol Succinate (Toprol Xl) 25 mg BID PO ; Start 09/13/20 at 21:00 Nitroglycerin (Nitrostat) 0.4 mg PRN Q5MIN PRN SL CHEST PAIN; Start 09/13/20 at 16:45 Pantoprazole Sodium (Protonix) 40 mg DAILYAC PO Last administered on 09/14/20at 10:21; Start 09/14/20 at 07:30 Lactulose (Lactulose) 20 gm DAILY PO ; Start 09/14/20 at 09:00 Estradiol (Estrace) 4 mg NOON PO Last administered on 09/14/20at 12:25; Start 09/14/20 at 12:00 Cetirizine HCl (ZyrTEC) 10 mg DAILY PO Last administered on 09/14/20at 10:20; Start 09/14/20 at 09:00 Losartan Potassium (Cozaar) 50 mg DAILY PO ; Start 09/14/20 at 09:00 Lidocaine (Lidoderm) 1 patch DAILY TD Last administered on 09/14/20at 10:24; Start 09/13/20 at 17:00 Miscellaneous (Lidoderm Patch Removal) 2 ea QHS MC Last administered on 09/14/20at 20:27; Start 09/13/20 at 21:00 Fentanyl Citrate (Fentanyl 2ml Vial) 50 mcg PRN Q3HRS PRN IVP PAIN Last administered on 09/14/20at 10:45; Start 09/13/20 at 16:45 Ondansetron HCl (Zofran) 4 mg PRN Q4HRS PRN IVP NAUSEA/VOMITING; Start 09/13/20 at 16:45 Sodium Chloride 1,000 ml @ 1,000 mls/hr 1X ONCE IV Last administered on 09/13/20at 16:55; Start 09/13/20 at 18:30; Stop 09/13/20 at 19:33; Status DC Sodium Chloride 500 ml @ 0 mls/hr 1X ONCE IV Last administered on 09/13/20at 17:56; Start 09/13/20 at 18:30; Stop 09/13/20 at 19:33; Status DC Enoxaparin Sodium (Lovenox 40mg Syringe) 40 mg BID SQ Last administered on 09/14/20at 20:26; Start 09/14/20 at 09:00 Albuterol/ Ipratropium (Combivent Respimat 20-100 Mcg) 1 puff RTQID INH Last administered on 09/14/20at 20:18; Start 09/14/20 at 09:45 Levofloxacin/ Dextrose (Levaquin Per Pharmacy) 1 each PRN DAILY PRN MC SEE COMMENTS; Start 09/14/20 at 09:45 Levofloxacin/ Dextrose 150 ml @ 100 mls/hr Q48H IV ; Start 09/15/20 at 10:00 Remdesivir 200 mg/ Sodium Chloride 210 ml @ 210 mls/hr 1X ONCE IV Last administered on 09/14/20at 10:41; Start 09/14/20 at 10:30; Stop 09/14/20 at 11:29; Status DC Remdesivir 100 mg/ Sodium Chloride 230 ml @ 460 mls/hr Q24H IV ; Start 09/15/20 at 10:30; Stop 09/18/20 at 10:59 Meropenem 1 gm/ Sodium Chloride 100 ml @ 0 mls/hr Q12H IV Last administered on 09/14/20at 23:17; Start 09/14/20 at 11:30 Morphine Sulfate (Morphine 2mg Syringe) 2 mg PRN Q4HRS PRN IV PAIN/AIR HUNGER; Start 09/14/20 at 10:15 Norepinephrine Bitartrate 8 mg/ Dextrose 258 ml @ 17.802 mls/ hr CONT PRN IV SEE I/O RECORD Last administered on 09/15/20at 01:52; Start 09/14/20 at 10:30 Dexamethasone Sodium Phosphate (Decadron) 6 mg DAILY IVP Last administered on 09/14/20at 12:23; Start 09/14/20 at 11:50 Oxycodone/ Acetaminophen (Percocet 5/325) 1 tab PRN Q4HRS PRN PO PAIN Last administered on 09/15/20at 03:52; Start 09/14/20 at 14:30 Active Scripts Active Reported Pantoprazole Sodium 40 Mg Tablet.dr 40 Mg PO DAILY MDD 40 Kristalose (Lactulose) 20 Gm Packet 20 G PO DAILY MDD 20 Metoprolol Succinate ( Xl ) (Metoprolol Succinate) 25 Mg Tab.er.24h 25 Mg PO BID MDD 25 NITROGLYCERIN SubLingual (Nitroglycerin) 0.4 Mg Tab.subl 0.4 Mg SL Children's Aspirin (Aspirin) 81 Mg Tab.chew 81 Mg PO Ibuprofen 800 Mg Tablet 800 Mg PO Estradiol 2 Mg Tablet 2 Mg PO Laurita Allergy (Fexofenadine Hcl) 60 Mg Tablet 60 Mg PO Micardis (Telmisartan) 80 Mg Tablet 80 Mg PO ALLERGIES Allergies: Coded Allergies: Penicillins (Verified Allergy, Unknown, 05/05/14) orange juice (Verified Allergy, Unknown, 12/15/14) pineapple (Verified Allergy, Unknown, 12/15/14) ROS Review of Systems 14 point ROS conducted with pertinent positives noted above in hPI PHYSICAL EXAM Physical Exam General: Alert, Oriented X3, Cooperative, No acute distress HEENT: Atraumatic, Mucous membr. moist/pink Lungs: Clear to auscultation, diminished bases Heart: Regular rate (SR), Normal S1, Normal S2, No murmurs Abdomen: Soft, No tenderness Extremities: No cyanosis, No edema Skin: No breakdown, No significant lesion Neuro: Normal speech, Sensation intact Psych/Mental Status: Mental status NL, Mood NL MUSCULOSKELETAL: Osteoarthritic changes both hands VITALS Vital Signs Vital Signs Date Time Temp Pulse Resp B/P (MAP) Pulse Ox O2 Delivery O2 Flow Rate FiO2 09/15/20 06:55 63 14 98/53 (68) 92 Nasal Cannula 3.0 09/15/20 05:50 98.5 LABS LABS Laboratory Tests Test 09/13/20 09:11 09/13/20 09:16 09/13/20 12:21 09/13/20 12:59 White Blood Count 3.0 x10^3/uL (4.0-11.0) Red Blood Count 4.31 x10^6/uL (4.30-5.70) Hemoglobin 12.8 g/dL (13.0-17.5) Hematocrit 39.4 % (39.0-53.0) Mean Corpuscular Volume 91 fL (79-100) Mean Corpuscular Hemoglobin 30 pg (25-35) Mean Corpuscular Hemoglobin Concent 32 g/dL (31-37) Red Cell Distribution Width 14.2 % (11.5-14.5) Platelet Count 232 x10^3/uL (140-400) Neutrophils (%) (Auto) 81 % (31-73) Lymphocytes (%) (Auto) 17 % (24-48) Monocytes (%) (Auto) 1 % (0-9) Eosinophils (%) (Auto) 1 % (0-3) Basophils (%) (Auto) 0 % (0-3) Neutrophils # (Auto) 2.5 x10^3uL (1.8-7.7) Lymphocytes # (Auto) 0.5 x10^3/uL (1.0-4.8) Monocytes # (Auto) 0.0 x10^3/uL (0.0-1.1) Eosinophils # (Auto) 0.0 x10^3/uL (0.0-0.7) Basophils # (Auto) 0.0 x10^3/uL (0.0-0.2) Sodium Level 135 mmol/L (136-145) Potassium Level 3.8 mmol/L (3.5-5.1) Chloride Level 100 mmol/L (98-107) Carbon Dioxide Level 26 mmol/L (21-32) Anion Gap 9 (6-14) Blood Urea Nitrogen 11 mg/dL (8-26) Creatinine 1.5 mg/dL (0.7-1.3) Estimated GFR (Cockcroft-Gault) 45.7 BUN/Creatinine Ratio 7 (6-20) Glucose Level 128 mg/dL (70-99) Lactic Acid Level 3.2 mmol/L (0.4-2.0) 2.7 mmol/L (0.4-2.0) Calcium Level 9.2 mg/dL (8.5-10.1) Magnesium Level 1.7 mg/dL (1.8-2.4) Total Bilirubin 0.9 mg/dL (0.2-1.0) Aspartate Amino Transf (AST/SGOT) 33 U/L (15-37) Alanine Aminotransferase (ALT/SGPT) 28 U/L (16-63) Alkaline Phosphatase 160 U/L (46-116) Troponin I Quantitative < 0.017 ng/mL (0-0.055) Total Protein 7.4 g/dL (6.4-8.2) Albumin 3.0 g/dL (3.4-5.0) Albumin/Globulin Ratio 0.7 (1.0-1.7) Lipase 74 U/L (73-393) Coronavirus (COVID-19)(PCR) Positive (NEGATIVE) Influenza Type A (Rapid) Negative (NEGATIVE) Influenza Type B (Rapid) Negative (NEGATIVE) Urine Collection Type Unknown Urine Color Yellow Urine Clarity Hazy Urine pH 6.0 Urine Specific [place] 1.020 Urine Protein 100 mg/dl (NEG-TRACE) Urine Glucose (UA) Neg mg/dL (NEG) Urine Ketones (Stick) Neg mg/dL (NEG) Urine Blood Mod (NEG) Urine Nitrite Neg (NEG) Urine Bilirubin Neg (NEG) Urine Urobilinogen Dipstick 0.2 mg/dL (0.2 mg/dL) Urine Leukocyte Esterase Trace (NEG) Urine RBC 3-5 /HPF (0-2) Urine WBC 11-20 /HPF (0-4) Urine Squamous Epithelial Cells Few /LPF Urine Bacteria Many /HPF (0-FEW) Test 09/14/20 06:50 09/14/20 07:00 09/14/20 09:33 09/14/20 17:17 White Blood Count 25.4 x10^3/uL (4.0-11.0) Red Blood Count 3.43 x10^6/uL (4.30-5.70) Hemoglobin 10.0 g/dL (13.0-17.5) Hematocrit 31.4 % (39.0-53.0) Mean Corpuscular Volume 91 fL (79-100) Mean Corpuscular Hemoglobin 29 pg (25-35) Mean Corpuscular Hemoglobin Concent 32 g/dL (31-37) Red Cell Distribution Width 14.9 % (11.5-14.5) Platelet Count 136 x10^3/uL (140-400) Neutrophils (%) (Auto) 93 % (31-73) Lymphocytes (%) (Auto) 3 % (24-48) Monocytes (%) (Auto) 4 % (0-9) Eosinophils (%) (Auto) 0 % (0-3) Basophils (%) (Auto) 0 % (0-3) Neutrophils # (Auto) 23.5 x10^3uL (1.8-7.7) Lymphocytes # (Auto) 0.8 x10^3/uL (1.0-4.8) Monocytes # (Auto) 1.0 x10^3/uL (0.0-1.1) Eosinophils # (Auto) 0.0 x10^3/uL (0.0-0.7) Basophils # (Auto) 0.0 x10^3/uL (0.0-0.2) Segmented Neutrophils % 36 % (35-66) Band Neutrophils % 40 % (0-9) Lymphocytes % 3 % (24-48) Monocytes % 8 % (0-10) Metamyelocytes % 10 % (0-0) Myelocytes % 3 % (0-0) Toxic Granulation Present Toxic Vacuolation Present Dohle Bodies Present Platelet Estimate Decreased (ADEQUATE) Large Platelets Occ Ovalocytes Present Crenated Cell Present Sodium Level 140 mmol/L (136-145) 139 mmol/L (136-145) Potassium Level 4.4 mmol/L (3.5-5.1) 4.2 mmol/L (3.5-5.1) Chloride Level 106 mmol/L (98-107) 106 mmol/L (98-107) Carbon Dioxide Level 23 mmol/L (21-32) 21 mmol/L (21-32) Anion Gap 11 (6-14) 12 (6-14) Blood Urea Nitrogen 17 mg/dL (8-26) 19 mg/dL (8-26) Creatinine 1.8 mg/dL (0.7-1.3) 1.6 mg/dL (0.7-1.3) Estimated GFR (Cockcroft-Gault) 37.1 42.5 BUN/Creatinine Ratio 9 (6-20) Glucose Level 63 mg/dL (70-99) 145 mg/dL (70-99) Lactic Acid Level 2.0 mmol/L (0.4-2.0) Calcium Level 7.6 mg/dL (8.5-10.1) 7.7 mg/dL (8.5-10.1) Total Bilirubin 0.5 mg/dL (0.2-1.0) Aspartate Amino Transf (AST/SGOT) 66 U/L (15-37) Alanine Aminotransferase (ALT/SGPT) 27 U/L (16-63) Alkaline Phosphatase 53 U/L (46-116) SL-Swv-E-Type Natriuretic Peptide 28841 pg/mL (0-124) Total Protein 5.9 g/dL (6.4-8.2) Albumin 2.3 g/dL (3.4-5.0) Albumin/Globulin Ratio 0.6 (1.0-1.7) Prostate Specific Antigen 0.27 ng/ml (0.00-4.00) Troponin I Quantitative 0.179 ng/mL (0-0.055) 0.227 ng/mL (0-0.055) Blood Gas pH 7.40 (7.35-7.46) Blood Gas PCO2 31 mmHg (35-46) Blood Gas PO2 83 mmHg (71-100) Blood Gas HCO3 19 mmol/L (21-28) Arterial Bld O2 Saturation (Calc) 96 % (92-99) FiO2 32 % ECHOCARDIOGRAM Echocardiogram <Conclusion> The left ventricular systolic function is normal. The Ejection Fraction is 55-60%. There is normal LV segmental wall motion. Transmitral Doppler flow pattern is Grade I-abnormal relaxation pattern. Trace mitral regurgitation. Trace tricuspid regurgitation with an estimated PAP of 31 mmHg. There is no evidence of significant pericardial effusion. DATE: 04/16/19 1048 HEART CATH Heart Cath Coronary angiography: Left main is a moderate caliber vessel with mild luminal irregularities LAD is a moderate caliber vessel with a proximal patent stent and mild diffuse irregularities diffusely D1 is a moderate caliber vessel with mild luminal irregularities Left circumflex is a moderate to large caliber vessel with a proximal 40% stenosis. OM1 is a moderate caliber vessel with a proximal 50% stenosis RCA is a large caliber dominant vessel with mild luminal irregularities RPDA is a moderate caliber vessel with mild luminal irregularities RPL is a moderate caliber vessel with an ostial 50% stenosis Conclusion 1. Normal biventricular filling pressures 2. No evidence of pulmonary hypertension 3. Normal cardiac output 4. Moderate noncritical coronary disease Recommendations 1. Case discussed with the pulmonary team as well. No obvious cardiac pathology noted to help explain the patient's dyspnea. Continue risk factor modification DATE: 06/09/20 0913 ASSESSMENT/PLAN Assessment/Plan 1. Abdominal pain, nausea/vomiting 2. Acute respiratory failure with AECOPD, recent COVID PNA 3. Leukocytosis, lactic acidosis, sepsis. BC with GNR 4. Mild troponin elevation; highest 0.2. most probable type II, demand ischemia. Recent cath as noted above 5. Acute on chronic diastolic CHF; Echo 04/10 with preserved LV systolic function. 6. PAFIB; tele noted with brief bursts of AFIB. New finding. Presently maintaining SR 6. Hypertension; low end. requiring low-dose pressor support 7. CAD; s/p PCI to the LAD in 2009; Cath 06/11 with moderate, non-obstructive disease 8. Type B aortic intramural hematoma; decrease in size compared to CTA 03/2019. No evidence of dissection 9. Hyperlipidemia 10. COPD 11. Infrarenal abdominal aortic aneurysm; 3.4 cm 12. Tobaccoism; recent remission 13. BPH, urinary retention; s/p Argueta Recommendations Hold antiHTN therapy wtih low end BP Titrate off Levophed as able Can use Dig IV for HR control as warranted Resume metoprolol when BP consistently adequate Continue ASA, prophylactic dosing Lovenox for now unless further AFIB is noted Lasix PRN Ongoing antibiotic therapy Lung optimization Will need outpatient urology eval Supportive care LYNDON FARR APRN Sep 15, 2020 08:11
[2020-09-15] MEDS: LACTULOSE 20 GM/30 ML SOLUTION. PO SCH (09:00)
[2020-09-15] MEDS: METOPROLOL SUCC 24HR ER 25 MG TAB.ER.24H. PO SCH ×2 (09:00→20:49)
[2020-09-15] MEDS: LOSARTAN 50 MG TABLET. PO SCH (09:00)
[2020-09-15] MEDS: CETIRIZINE HCL 10 MG TABLET PO SCH (10:47)
[2020-09-15] MEDS: ASPIRIN CHEWABLE 81 MG TABLET. PO SCH (10:48)
[2020-09-15] MEDS: ENOXAPARIN 40 MG/0.4 ML SYRINGE. SQ SCH ×2 (10:48→20:16)
[2020-09-15] MEDS: DEXAMETHASONE SOD PHOS 4 MG/ML VIAL. IVP SCH (10:48)
[2020-09-15] MEDS: IPRATROPIUM/ALBUTEROL 20/100mcg/INH INHALER. INH SCH ×4 (10:48→19:23)
[2020-09-15] MEDS: LIDOCAINE (700MG/PATCH) PATCH. TD SCH (10:49)
[2020-09-15] MEDS: REMDESIVIR 100mg in NORMAL SALINE 250ML X 4 DAYS IV SCH (10:50)
[2020-09-15] MEDS: MEROPENEM 1 GM in IV NORMAL SALINE 100ML 100 ML IV SCH ×2 (11:30→23:01)
[2020-09-15 14:51] LABS: WHITE BLOOD COUNT 25.4 x10^3/uL (4.0-11.0)
[2020-09-15] MEDS: ESTRADIOL 1 MG TABLET PO SCH (16:39)
[2020-09-15 17:20] LABS: BASO % 0 % (0-3); EOS # 0.1 x10^3/uL (0.0-0.7); EOS % 0 % (0-3); HEMATOCRIT 31.3 % (39.0-53.0); LYMPH # 0.6 x10^3/uL (1.0-4.8); LYMPH % 3 % (24-48); MEAN CORPUSCULAR HEMOGLOBIN 29 pg (25-35); MEAN CORPUSCULAR HGB CONC 32 g/dL (31-37); MEAN CORPUSCULAR VOLUME 91 fL (79-100); MONO # 0.4 x10^3/uL (0.0-1.1); MONO % 2 % (0-9); NEUT # 20.5 x10^3uL (1.8-7.7); NEUT % 95 % (31-73); PLATELET COUNT 150 x10^3/uL (140-400); RED BLOOD COUNT 3.45 x10^6/uL (4.30-5.70); WHITE BLOOD COUNT 21.6 x10^3/uL (4.0-11.0)
[2020-09-15 17:32] LABS: CREATININE 1.3 mg/dL (0.7-1.3); POTASSIUM 4.4 mmol/L (3.5-5.1)
[2020-09-15] MEDS ORDERED: DIGOXIN IV 500 MCG/2 ML AMPUL. ONE (17:41)
[2020-09-15 17:43] LABS: ALBUMIN 1.9 g/dL (3.4-5.0); ALBUMIN/GLOBULIN RATIO 0.5 (1.0-1.7); TOTAL BILIRUBIN 0.2 mg/dL (0.2-1.0); TOTAL PROTEIN 5.9 g/dL (6.4-8.2)
[2020-09-15] MEDS ORDERED: DIGOXIN IV 500 MCG/2 ML AMPUL. IV ONE (17:45)
[2020-09-15] MEDS ORDERED: METOPROLOL TARTRATE 5 MG/5 ML VIAL. IV ONE (18:30)
[2020-09-15] MEDS ORDERED: AMIODARONE 450 MG in IV DEXTROSE 5% 250 ML IV PRN (20:00)
[2020-09-15] MEDS ORDERED: AMIODARONE 150 MG in IV DEXTROSE 5% 100 ML IVP ONE (20:00)
[2020-09-15] MEDS: PATCH REMOVAL. MC SCH ×2 (20:16→21:00)
[2020-09-15] MEDS: DOCUSATE SODIUM 100 MG CAPSULE PO SCH (21:26)
--- NOTE | 2020-09-15 23:20 | PN ---
DATE: 09/15/2020 SUBJECTIVE: The patient is resting, slightly propped up in bed, in no apparent distress. On questioning him, he is feeling generally much better. His pain is much better controlled. He denied any chest pain or shortness of breath, has been out of bed and sat in the chair today. He is maintaining his oxygen saturation at 94% on 3 liters of oxygen. PHYSICAL EXAMINATION: GENERAL: When I examined him, he looked well and was clearly in no apparent respiratory distress. He is pale, but no jaundice, cyanosis or lymphadenopathy, no thyromegaly. No jugular venous distention. No limb edema. VITAL SIGNS: His heart rate was 63, blood pressure was 97/53, temperature was 98.5, respiratory rate was 16, and oxygen saturation was 94% on 3 liters of oxygen. HEAD, EYES, EARS, NOSE AND THROAT: Showed normocephalic and atraumatic. NECK: Supple. HEART: Showed normal first and second heart sounds. No gallop or murmur. CHEST: Showed central trachea, equal bilateral chest expansion, air entry, vesicular breath sounds. No crepitation or rhonchi. ABDOMEN: Distended, soft, nontender. NEUROLOGIC: He is awake, alert, responding appropriately. All his cranial nerves are intact. He moves extremities without difficulty, ambulates without assistance or assistive devices. His intake was 5070, output was 1700. LABORATORY DATA: Today's labs are still pending at the time of this dictation. As of yesterday, his white cell count was 25,000, hemoglobin 10, hematocrit 31, MCV 91, and platelet count of 136,000. As of yesterday, his serum sodium was 139, potassium 4.2, chloride 106, bicarbonate 21, anion gap of 12, BUN 19, creatinine 1.6. ASSESSMENT: 1. COVID-19 pneumonia. 2. Severe abdominal pain, mostly in the perianal and perineal area, likely due to prostatitis. 3. Sepsis with a growth of Gram-negative bacteria in 4/4 bottles. The identification and sensitivity is still pending at the time of this dictation. 4. The patient has multiple other medical problems including: A. Chronic obstructive pulmonary disease. B. Hyperlipidemia. C. Hypertension. D. Coronary artery disease, status post myocardial infarction with percutaneous coronary intervention and stent deployment. E. Osteoarthritis. F. Chronic low back pain. 5. Acute kidney injury; however, his labs are still pending at the time of this dictation. His urine output has definitely improved. PLAN: To continue with IV antibiotic in the form of meropenem as well as levofloxacin. Continue with dexamethasone and remdesivir. Continue with Combivent inhaler. I have held his losartan and metoprolol given his sepsis and hypertension. MONIQUE LAYNE MD DR: IRAM/josiah JOB#: [id number] / [id number]
[2020-09-16] VITALS (19 sets, daily range): BP systolic 118–147; BP diastolic 60–84
[2020-09-16] MEDS: oxyCODONE/APAP 5/325 1 TAB TABLET PO PRN ×6 (01:21→22:42)
[2020-09-16] MEDS: IPRATROPIUM/ALBUTEROL 20/100mcg/INH INHALER. INH SCH ×4 (06:01→20:53)
[2020-09-16 06:07] LABS: HEMATOCRIT 33.8 % (39.0-53.0); HEMOGLOBIN 10.8 g/dL (13.0-17.5); RED BLOOD COUNT 3.71 x10^6/uL (4.30-5.70); RED CELL DISTRIBUTION WIDTH 15.1 % (11.5-14.5); WHITE BLOOD COUNT 24.7 x10^3/uL (4.0-11.0)
[2020-09-16 06:23] LABS: ALBUMIN 2.2 g/dL (3.4-5.0); ALBUMIN/GLOBULIN RATIO 0.5 (1.0-1.7); CALCIUM 8.3 mg/dL (8.5-10.1); CREATININE 1.2 mg/dL (0.7-1.3); GFR 59.2; POTASSIUM 4.1 mmol/L (3.5-5.1); TOTAL BILIRUBIN 0.3 mg/dL (0.2-1.0); TOTAL PROTEIN 6.3 g/dL (6.4-8.2)
[2020-09-16] MEDS ORDERED: AMIODARONE 900 MG in IV DEXTROSE 5% 500 ML IV ONE (06:30)
--- NOTE | 2020-09-16 07:52 | PDOC ---
CARDIO Progress Notes Date & Time Date of Service DATE: 09/16/20 TIME: 07:47 Time of Evaluation 07:47 Subjective Notes No CP, dizziness, palpitations. SOA improved Vitals Vitals Vital Signs Date Time Temp Pulse Resp B/P (MAP) Pulse Ox O2 Delivery O2 Flow Rate FiO2 09/16/20 07:00 60 18 118/60 (79) 93 Nasal Cannula 3.0 09/15/20 20:15 97.2 Weight Weight [ ] Input and Output I.O. Intake and Output 09/16/20 07:00 Intake Total 2040 ml Output Total 3625 ml Balance -1585 ml Intake Oral 1560 ml IV Total 480 ml Output Urine Total 3625 ml Laboratory Labs Laboratory Tests Test 09/14/20 09:33 09/14/20 17:17 09/15/20 16:45 09/16/20 05:30 Blood Gas pH 7.40 (7.35-7.46) Blood Gas PCO2 31 mmHg (35-46) Blood Gas PO2 83 mmHg (71-100) Blood Gas HCO3 19 mmol/L (21-28) Arterial Bld O2 Saturation (Calc) 96 % (92-99) FiO2 32 % Sodium Level 139 mmol/L (136-145) 132 mmol/L (136-145) 136 mmol/L (136-145) Potassium Level 4.2 mmol/L (3.5-5.1) 4.4 mmol/L (3.5-5.1) 4.1 mmol/L (3.5-5.1) Chloride Level 106 mmol/L (98-107) 103 mmol/L (98-107) 105 mmol/L (98-107) Carbon Dioxide Level 21 mmol/L (21-32) 23 mmol/L (21-32) 24 mmol/L (21-32) Anion Gap 12 (6-14) 6 (6-14) 7 (6-14) Blood Urea Nitrogen 19 mg/dL (8-26) 21 mg/dL (8-26) 23 mg/dL (8-26) Creatinine 1.6 mg/dL (0.7-1.3) 1.3 mg/dL (0.7-1.3) 1.2 mg/dL (0.7-1.3) Estimated GFR (Cockcroft-Gault) 42.5 54.0 59.2 Glucose Level 145 mg/dL (70-99) 272 mg/dL (70-99) 168 mg/dL (70-99) Calcium Level 7.7 mg/dL (8.5-10.1) 8.0 mg/dL (8.5-10.1) 8.3 mg/dL (8.5-10.1) Troponin I Quantitative 0.227 ng/mL (0-0.055) White Blood Count 21.6 x10^3/uL (4.0-11.0) 24.7 x10^3/uL (4.0-11.0) Red Blood Count 3.45 x10^6/uL (4.30-5.70) 3.71 x10^6/uL (4.30-5.70) Hemoglobin 10.0 g/dL (13.0-17.5) 10.8 g/dL (13.0-17.5) Hematocrit 31.3 % (39.0-53.0) 33.8 % (39.0-53.0) Mean Corpuscular Volume 91 fL (79-100) 91 fL (79-100) Mean Corpuscular Hemoglobin 29 pg (25-35) 29 pg (25-35) Mean Corpuscular Hemoglobin Concent 32 g/dL (31-37) 32 g/dL (31-37) Red Cell Distribution Width 15.0 % (11.5-14.5) 15.1 % (11.5-14.5) Platelet Count 150 x10^3/uL (140-400) 162 x10^3/uL (140-400) Neutrophils (%) (Auto) 95 % (31-73) Lymphocytes (%) (Auto) 3 % (24-48) Monocytes (%) (Auto) 2 % (0-9) Eosinophils (%) (Auto) 0 % (0-3) Basophils (%) (Auto) 0 % (0-3) Neutrophils # (Auto) 20.5 x10^3uL (1.8-7.7) Lymphocytes # (Auto) 0.6 x10^3/uL (1.0-4.8) Monocytes # (Auto) 0.4 x10^3/uL (0.0-1.1) Eosinophils # (Auto) 0.1 x10^3/uL (0.0-0.7) Basophils # (Auto) 0.0 x10^3/uL (0.0-0.2) BUN/Creatinine Ratio 16 (6-20) 19 (6-20) Total Bilirubin 0.2 mg/dL (0.2-1.0) 0.3 mg/dL (0.2-1.0) Aspartate Amino Transf (AST/SGOT) 48 U/L (15-37) 31 U/L (15-37) Alanine Aminotransferase (ALT/SGPT) 22 U/L (16-63) 23 U/L (16-63) Alkaline Phosphatase 61 U/L (46-116) 88 U/L (46-116) Total Protein 5.9 g/dL (6.4-8.2) 6.3 g/dL (6.4-8.2) Albumin 1.9 g/dL (3.4-5.0) 2.2 g/dL (3.4-5.0) Albumin/Globulin Ratio 0.5 (1.0-1.7) 0.5 (1.0-1.7) Microbiology Micro Microbiology 09/13/20 Urine Culture - Final, Complete 09/13/20 Blood Culture - Preliminary, Resulted Physical Exams HEENT: Neck Supple W Full Motion Chest: Symmetric Lungs: Other (diminished, on NC) Heart: irregularly irregular (AFIB rate 115) Abdomen: Soft N/T Extremities: No Edema Neurology: alert, oriented, follow commands Assessment Assessment 1. Abdominal pain, nausea/vomiting 2. Acute respiratory failure with AECOPD, recent COVID PNA. Remdesivir 3. Leukocytosis, lactic acidosis, sepsis. BC with GNR 4. Mild troponin elevation; highest 0.2. most probable type II, demand ischemia in setting of sepsis 5. Acute on chronic diastolic CHF; Echo 04/10 with preserved LV systolic fun ction. 6. PAFIB; new in setting of sepsis. Went into AFIB with RVR yesterday evening. HR uncontrolled despite Dig and metoprolol IV. Amiodarone gtt initiated. Converted back to SR and maintained overnight. Went back into AFIB this morning after sitting up on the edge of the bed for breakfast. 7. Hypertension; low end. requiring low-dose pressor support 8. CAD; s/p PCI to the LAD in 2009; Cath 06/11 with moderate, non-obstructive disease 9. Type B aortic intramural hematoma; decrease in size compared to CTA 03/2019. No evidence of dissection 10. Hyperlipidemia 11. Infrarenal abdominal aortic aneurysm; 3.4 cm 12. Tobaccoism; recent remission 13. BPH, urinary retention; s/p Argueta Recommendations Continue metoprolol for rate control; give dose now Not ideal candidate for long-term amiodarone given underlying lung disease IV Dig PRN Continue ASA, prophylactic dosing Lovenox for now Consider outpatient event monitor to guide therapy. Lasix PRN Ongoing antibiotic therapy for sepsis Lung optimization Will need outpatient urology eval Supportive care LYNDON FARR APRN Sep 16, 2020 07:52
[2020-09-16] MEDS: DOCUSATE SODIUM 100 MG CAPSULE PO SCH ×2 (08:26→20:54)
[2020-09-16] MEDS: LACTULOSE 20 GM/30 ML SOLUTION. PO SCH (08:26)
[2020-09-16] MEDS: CETIRIZINE HCL 10 MG TABLET PO SCH (08:26)
[2020-09-16] MEDS: ASPIRIN CHEWABLE 81 MG TABLET. PO SCH (08:26)
[2020-09-16] MEDS: PANTOPRAZOLE 40 MG TABLET. PO SCH (08:26)
[2020-09-16] MEDS: DEXAMETHASONE SOD PHOS 4 MG/ML VIAL. IVP SCH (08:27)
[2020-09-16] MEDS: ENOXAPARIN 40 MG/0.4 ML SYRINGE. SQ SCH ×2 (08:27→20:55)
[2020-09-16] MEDS: METOPROLOL SUCC 24HR ER 25 MG TAB.ER.24H. PO SCH ×2 (08:28→20:54)
[2020-09-16] MEDS: LOSARTAN 50 MG TABLET. PO SCH (08:29)
[2020-09-16] MEDS: LIDOCAINE (700MG/PATCH) PATCH. TD SCH (08:30)
[2020-09-16] MEDS: REMDESIVIR 100mg in NORMAL SALINE 250ML X 4 DAYS IV SCH (09:55)
[2020-09-16] MEDS: MEROPENEM 1 GM in IV NORMAL SALINE 100ML 100 ML IV SCH ×2 (13:25→23:30)
[2020-09-16] MEDS: ESTRADIOL 1 MG TABLET PO SCH (15:53)
[2020-09-16] MEDS: PATCH REMOVAL. MC SCH (20:53)
[2020-09-16] MEDS: LACTOBACILLUS RHAMNOSUS GG 1 CAPSULE. PO SCH (20:54)
[2020-09-16] MEDS: AMIODARONE HCL 200 MG TABLET. PO SCH (20:54)
[2020-09-17] VITALS (11 sets, daily range): BP systolic 121–169; BP diastolic 60–87
[2020-09-17] MEDS: oxyCODONE/APAP 5/325 1 TAB TABLET PO PRN ×6 (02:40→22:25)
--- NOTE | 2020-09-17 07:30 | PN ---
DATE: 09/16/2020 ATTENDING PHYSICIAN: Alexandr Beach MD SUBJECTIVE: The patient is feeling better. He is alert. He is breathing well. Satting adequately on room air. He denied any fevers, chills, cough, congestion. He is on day 3 of remdesivir. OBJECTIVE FINDINGS: VITAL SIGNS: Blood pressure today is 118/60, pulse is 60 and regular. He is afebrile. Oxygen saturation adequate on room air. HEENT: Head is without trauma. Pupils are reactive. Sclerae nonicteric. Oropharynx clear. NECK: Supple. LUNGS: Good breath sounds. Very minimal rhonchi. CARDIOVASCULAR: Showed regular heart tones. No gallops. ABDOMEN: Soft, no guarding. EXTREMITIES: Without edema. NEUROLOGIC: Focally intact. SKIN: Warm and dry. Minor complaints of constipation. ASSESSMENT: 1. A 75-year-old gentleman with gram-negative septicemia. ID and sensitivity are still pending. Most likely, the source of his infection is urinary source. 2. COVID-19 pneumonia. 3. Abdominal pain, resolved. 4. Chronic obstructive pulmonary disease. 5. Paroxysmal atrial fibrillation, controlled with amiodarone drip. 6. Known coronary artery disease with previous myocardial infarction, percutaneous transluminal coronary angioplasty and stents. 7. Chronic low back pain. 8. Osteoarthritis. PLAN: 1. Finish remdesivir course, today is day 3 of 5 days. 2. Continue Levaquin pending ID and sensitivity of blood cultures. 3. Lactulose for constipation. 4. Diet as tolerated. 5. We are weaning him down from supplemental oxygen. 6. Other meds reviewed. LINDY GUTIERREZ MD DR: SERA/josiah JOB#: [id number] / [id number]
[2020-09-17] MEDS: LACTULOSE 20 GM/30 ML SOLUTION. PO SCH (08:03)
[2020-09-17] MEDS: ENOXAPARIN 40 MG/0.4 ML SYRINGE. SQ SCH (08:03)
[2020-09-17] MEDS: ASPIRIN CHEWABLE 81 MG TABLET. PO SCH (08:03)
[2020-09-17] MEDS: LACTOBACILLUS RHAMNOSUS GG 1 CAPSULE. PO SCH (08:04)
[2020-09-17] MEDS: PANTOPRAZOLE 40 MG TABLET. PO SCH (08:04)
[2020-09-17] MEDS: DOCUSATE SODIUM 100 MG CAPSULE PO SCH ×2 (08:04→21:20)
[2020-09-17] MEDS: METOPROLOL SUCC 24HR ER 25 MG TAB.ER.24H. PO SCH ×2 (08:04→21:21)
[2020-09-17] MEDS: AMIODARONE HCL 200 MG TABLET. PO SCH (08:04)
[2020-09-17] MEDS: LIDOCAINE (700MG/PATCH) PATCH. TD SCH ×2 (08:05→09:00)
[2020-09-17] MEDS: LOSARTAN 50 MG TABLET. PO SCH (08:05)
[2020-09-17] MEDS: CETIRIZINE HCL 10 MG TABLET PO SCH (08:05)
[2020-09-17] MEDS: DEXAMETHASONE SOD PHOS 4 MG/ML VIAL. IVP SCH (08:06)
[2020-09-17] MEDS: IPRATROPIUM/ALBUTEROL 20/100mcg/INH INHALER. INH SCH ×4 (08:06→20:48)
--- NOTE | 2020-09-17 10:29 | PN ---
DATE: 09/17/2020 ATTENDING PHYSICIAN: Dr. Beach and Dr. Gutierrez. SUBJECTIVE: Feeling better. He denies any dyspnea. Pain is fairly well controlled. Currently, he is on day 4 of remdesivir. OBJECTIVE FINDINGS: VITAL SIGNS: Oxygen saturations have been cut down to 2 liters with adequate saturations. Blood pressure is 126/66 mmHg, pulse is 60 and regular. He is afebrile. HEENT: Head is without trauma. Pupils are reactive. Sclerae are nonicteric. Oropharynx is clear. NECK: Supple, no thyromegaly or stridor. LUNGS: Good breath sounds. CARDIOVASCULAR: Showed regular heart tones. No gallops. Peripheral pulses are palpable and full. ABDOMEN: Soft, no guarding. Good bowel sounds. EXTREMITIES: Without edema. NEUROLOGIC: No deficits. Speech is fluent. SKIN: Otherwise warm and dry. ASSESSMENT: 1. A 75-year-old gentleman with gram-negative septicemia. ID has grown Escherichia coli, which is pansensitive. 2. COVID-19 pneumonia, day 4 of remdesivir. 3. Abdominal pain, resolved. 4. Chronic obstructive pulmonary disease. 5. Paroxysmal atrial fibrillation with controlled ventricular rate. 6. Known coronary artery disease with previous myocardial infarction and stents. 7. Chronic back pain. 8. Degenerative arthritis. PLAN: 1. Finish remdesivir course, today is day 4 or 5. 2. Continue Levaquin as ordered. 3. We can discontinue the meropenem. 4. Lactulose for constipation. 5. P.r.n. Percocet for pain control. 6. Diet as tolerated. 7. We are weaning down his supplemental oxygen hopefully down to room air. 8. He can be discharged as early as tomorrow for further quarantine at home. LINDY GUTIERREZ MD DR: SERA/josiah JOB#: [id number] / [id number]
[2020-09-17] MEDS: REMDESIVIR 100mg in NORMAL SALINE 250ML X 4 DAYS IV SCH (10:39)
[2020-09-17] MEDS: ESTRADIOL 1 MG TABLET PO SCH (11:55)
[2020-09-17] MEDS: PATCH REMOVAL. MC SCH (21:21)
[2020-09-18] MEDS: oxyCODONE/APAP 5/325 1 TAB TABLET PO PRN ×6 (02:30→22:50)
[2020-09-18 05:00] VITALS: BP 172/91
[2020-09-18 06:47] LABS: ALBUMIN 2.3 g/dL (3.4-5.0); ALBUMIN/GLOBULIN RATIO 0.5 (1.0-1.7); CALCIUM 8.5 mg/dL (8.5-10.1); CREATININE 1.2 mg/dL (0.7-1.3); GFR 59.2; POTASSIUM 3.5 mmol/L (3.5-5.1); TOTAL BILIRUBIN 0.3 mg/dL (0.2-1.0); TOTAL PROTEIN 6.7 g/dL (6.4-8.2)
[2020-09-18] MEDS: ASPIRIN CHEWABLE 81 MG TABLET. PO SCH (08:21)
[2020-09-18] MEDS: PANTOPRAZOLE 40 MG TABLET. PO SCH (08:22)
[2020-09-18] MEDS: LOSARTAN 50 MG TABLET. PO SCH (08:22)
[2020-09-18] MEDS: DOCUSATE SODIUM 100 MG CAPSULE PO SCH ×2 (08:22→20:39)
[2020-09-18] MEDS: CETIRIZINE HCL 10 MG TABLET PO SCH (08:22)
[2020-09-18] MEDS: AMIODARONE HCL 200 MG TABLET. PO SCH (08:22)
[2020-09-18] MEDS: METOPROLOL SUCC 24HR ER 25 MG TAB.ER.24H. PO SCH ×2 (08:23→20:39)
[2020-09-18] MEDS: DEXAMETHASONE SOD PHOS 4 MG/ML VIAL. IVP SCH (08:23)
[2020-09-18] MEDS: LACTULOSE 20 GM/30 ML SOLUTION. PO SCH (08:23)
[2020-09-18] MEDS: LIDOCAINE (700MG/PATCH) PATCH. TD SCH (09:00)
[2020-09-18] MEDS: REMDESIVIR 100mg in NORMAL SALINE 250ML X 4 DAYS IV SCH (10:01)
[2020-09-18 10:19] VITALS: BP 150/80
[2020-09-18] MEDS: IPRATROPIUM/ALBUTEROL 20/100mcg/INH INHALER. INH SCH ×4 (10:48→20:39)
--- NOTE | 2020-09-18 12:04 | PN ---
DATE: 09/18/2020 ATTENDING PHYSICIAN: Dr. Gutierrez. SUBJECTIVE: The patient is doing well. He had a Argueta catheter removed. Because of some gross hematuria, we stopped his Lovenox. He is breathing well. We are weaning down his oxygen requirement. He still has some swollen testicles that he feels like is full. It is related to trauma from insertion of the catheter. OBJECTIVE FINDINGS: VITAL SIGNS: Blood pressure today is 172/90, pulse is 80 and regular, temperature 97.5 degrees Fahrenheit, oxygen saturation 95% on 2 liters. We are in the process of weaning him down. HEENT: Head is without trauma. Pupils are reactive. Sclerae are nonicteric. Oropharynx is clear. NECK: Supple. LUNGS: Otherwise clear with good breath sounds. CARDIOVASCULAR: Showed regular heart tones. No gallops. ABDOMEN: Soft. EXTREMITIES: Without edema. NEUROLOGIC: Function focally intact. Speech is fluent. SKIN: Warm and dry. I did examine his genitourinary area; he is an uncircumcised male. There are no lesions of the penis. There is no obvious hematuria or discharge. I did examine his scrotum; it is mildly enlarged, there are no masses, there is no cystocele or any other distinct abnormalities besides the swelling. I believe this is secondary to trauma. ASSESSMENT: 1. A 75-year-old gentleman with a gram-negative septicemia. He has positive blood cultures grew E. coli, which is pansensitive. 2. COVID-19 pneumonia. Today is actually day #4 of remdesivir. 3. Abdominal pain, resolved. 4. Chronic obstructive pulmonary disease. 5. Gross hematuria, resolved with removal of Argueta catheter. 6. Paroxysmal atrial fibrillation. 7. Chronic low back pain. 8. Previous coronary artery disease with stents. PLAN: 1. Finish course of remdesivir. 2. Continue antibiotics as ordered. 3. Continue Levaquin for sepsis. 4. We should try to wean down his oxygen supplementation and hopefully get him by on room air. 5. Tentative discharge planning for this weekend. LINDY GUTIERREZ MD DR: SERA/josiah JOB#: [id number] / [id number]
[2020-09-18] MEDS: ESTRADIOL 1 MG TABLET PO SCH (13:04)
[2020-09-18 14:03] VITALS: BP 149/77
[2020-09-18 20:22] VITALS: BP 138/73
[2020-09-18] MEDS: PATCH REMOVAL. MC SCH (21:00)
[2020-09-18 22:47] VITALS: BP 161/86
[2020-09-19] MEDS: oxyCODONE/APAP 5/325 1 TAB TABLET PO PRN ×3 (02:48→10:56)
[2020-09-19 06:57] VITALS: BP 156/79
[2020-09-19] MEDS: AMIODARONE HCL 200 MG TABLET. PO SCH (08:14)
[2020-09-19] MEDS: DOCUSATE SODIUM 100 MG CAPSULE PO SCH (08:14)
[2020-09-19] MEDS: LOSARTAN 50 MG TABLET. PO SCH (08:14)
[2020-09-19] MEDS: LACTULOSE 20 GM/30 ML SOLUTION. PO SCH (08:14)
[2020-09-19] MEDS: LIDOCAINE (700MG/PATCH) PATCH. TD SCH (08:15)
[2020-09-19] MEDS: ASPIRIN CHEWABLE 81 MG TABLET. PO SCH (08:15)
[2020-09-19] MEDS: PANTOPRAZOLE 40 MG TABLET. PO SCH (08:15)
[2020-09-19] MEDS: CETIRIZINE HCL 10 MG TABLET PO SCH (08:15)
[2020-09-19] MEDS: METOPROLOL SUCC 24HR ER 25 MG TAB.ER.24H. PO SCH (08:15)
[2020-09-19 08:23] LABS: ALBUMIN 2.2 g/dL (3.4-5.0); ALBUMIN/GLOBULIN RATIO 0.5 (1.0-1.7); CALCIUM 8.2 mg/dL (8.5-10.1); CREATININE 1.1 mg/dL (0.7-1.3); GFR 65.4; POTASSIUM 3.3 mmol/L (3.5-5.1); TOTAL BILIRUBIN 0.4 mg/dL (0.2-1.0); TOTAL PROTEIN 6.3 g/dL (6.4-8.2)
[2020-09-19] MEDS: DEXAMETHASONE SOD PHOS 4 MG/ML VIAL. IVP SCH (09:00)
--- NOTE | 2020-09-19 09:07 | DS ---
DATE OF DISCHARGE: 09/19/2020 ATTENDING PHYSICIANS: Dr. Beach and Dr. Gutierrez. FINAL DISCHARGE DIAGNOSES: 1. Gram-negative septicemia growing Escherichia coli that is pansensitive. 2. Urinary tract infection related to prostatic enlargement. 3. COVID-19 pneumonia, treated. 4. Chronic obstructive pulmonary disease. 5. Acute on chronic respiratory failure. 6. Gross hematuria, resolved. 7. Paroxysmal atrial fibrillation, controlled. 8. Chronic low back pain. 9. Known previous history of coronary artery disease. HISTORY AND PHYSICAL: The patient is a 75-year-old gentleman with underlying COPD. He had been positive for COVID-19 pneumonia. He also developed sepsis syndrome related to urinary tract infection. He was admitted for further treatment and evaluation. PHYSICAL EXAMINATION: Please see the dictated note. PERTINENT LABORATORY AND X-RAY STUDIES: Chest x-ray done on admission and subsequently the day after showed bilateral ground glass appearing infiltrates in the lateral portions of the lower lobes. Cultures of blood grew out 4 cultures were positive for E. coli that was pansensitive to all antibiotics. Urine cultures did not show any growth, but the blood cultures did. He had other blood work which showed a hemoglobin of 10.8 g/dL, white count had been slightly elevated due to margination of white cells from corticosteroid use. It was 24,000. This will be followed as an outpatient. Electrolytes are within normal range. Potassium was 3.3 mEq, asymptomatic. This will be followed up with supplemental potassium at the time of discharge. Sodium 138, creatinine 1.1 mg percent. Troponin was slightly elevated at 0.22. This is due to stress ischemia demand. COURSE IN THEHOSPITAL: The patient was admitted. He was started on intravenous Levaquin and meropenem for his gram-negative sepsis. In addition, he also received remdesivir and convalescent plasma per protocol for his coronavirus. He did well. He was able to be weaned off oxygen and his oxygen saturations are quite adequate on room air prior to discharge. He had some paroxysmal atrial fibrillation. Cardiology consultation was entertained, their recommendation on the chart. He was treated accordingly with amiodarone. Their followup recommendations are appreciated. They felt that his mild troponin elevation is due to type 2 demand ischemia in the setting of sepsis. They felt that his left ventricular function is well preserved from a previous echo dated 03/2019. The patient did well, progressing to improvement. He did have some gross hematuria due to the Lovenox. This was stopped and we removed his Argueta catheter. He received 6 full days of intravenous Levaquin and he felt better. On the day of discharge, his vital signs are quite stable. He was on room air with adequate oxygen saturations. Blood pressure was 150/79, pulse is 76 and regular, and he was afebrile. Therefore, I discharged him home with the following meds, he will continue his regular schedule home meds including his Micardis, aspirin, estradiol, Laurita, lactulose, metoprolol, Protonix, and Micardis 80 mg daily. For now, I have asked him to stop the ibuprofen use. In addition, I wrote prescriptions for Levaquin 750 mg p.o. daily for 7 more days, amiodarone 200 mg p.o. daily, Flomax 0.4 mg at bedtime for his urinary tract obstruction. K-Dur 20 mEq daily for 10 days and then stop and finally we increased his pain medicine to Percocet 7.5 mg 1 every 6 hours p.r.n. pain. I suggested that he continue maintaining the quarantine as he has been doing at home. He should see Dr. Pratt for followup visit in 2 weeks' time. He was discharged from our hospital in stable condition with explicit instructions and followup care. LINDY GUTIERREZ MD DR: SERA/josiah JOB#: [id number] / [id number] YONY Anthony MD
[2020-09-19] MEDS ORDERED: LEVO750T5 PO (10:25)
[2020-09-19] MEDS ORDERED: TAMS0.4C97 PO (10:26)
[2020-09-19] MEDS ORDERED: AMIO200T6 PO (10:26)
[2020-09-19] MEDS ORDERED: POTA10TA PO (10:27)
[2020-09-19] MEDS ORDERED: OXYC1TAB19 PO (10:28)
[2020-09-19] MEDS: IPRATROPIUM/ALBUTEROL 20/100mcg/INH INHALER. INH SCH (10:56)
[2020-09-19 11:00] VITALS: BP 142/68
== END 2020-09-19 11:30 | disposition home or self-care (01) | DRG 871 ==
LOC: ER 08:43 → ICU 14:12 → 1 SOUTH 09-17 18:15
PROVIDERS: ADMIT Internal Medicine; ATTEND Internal Medicine
PROC: XW033E5 Introduction of Remdesivir Anti-infective into Peripheral Vein, Percutaneous Approach, New Technology Group 5 (ICD-10-PCS; principal; 2020-09-14)
PROC: XW13325 Transfusion of Convalescent Plasma (Nonautologous) into Peripheral Vein, Percutaneous Approach, New Technology Group 5 (ICD-10-PCS; 2020-09-15)
DX: A41.51 Sepsis due to Escherichia coli [E. coli] (principal); U07.1 COVID-19; I50.33 Acute on chronic diastolic (congestive) heart failure; J12.89 Other viral pneumonia; J96.20 Acute and chronic respiratory failure, unspecified whether with hypoxia or hypercapnia; N39.0 Urinary tract infection, site not specified; J44.0 Chronic obstructive pulmonary disease with (acute) lower respiratory infection; J44.1 Chronic obstructive pulmonary disease with (acute) exacerbation; N17.9 Acute kidney failure, unspecified; I24.8 Other forms of acute ischemic heart disease; R65.20 Severe sepsis without septic shock; I25.10 Atherosclerotic heart disease of native coronary artery without angina pectoris; I11.0 Hypertensive heart disease with heart failure; D72.819 Decreased white blood cell count, unspecified; E78.5 Hyperlipidemia, unspecified; M19.90 Unspecified osteoarthritis, unspecified site; G89.29 Other chronic pain; M54.5 Low back pain; K21.9 Gastro-esophageal reflux disease without esophagitis; K57.90 Diverticulosis of intestine, part unspecified, without perforation or abscess without bleeding; K58.9 Irritable bowel syndrome, unspecified; M06.9 Rheumatoid arthritis, unspecified; I48.0 Paroxysmal atrial fibrillation; I71.4 Abdominal aortic aneurysm, without rupture; R33.8 Other retention of urine; R31.0 Gross hematuria; N40.1 Benign prostatic hyperplasia with lower urinary tract symptoms; Z95.5 Presence of coronary angioplasty implant and graft; Z88.0 Allergy status to penicillin; Z91.018 Allergy to other foods; I25.2 Old myocardial infarction; Z90.49 Acquired absence of other specified parts of digestive tract; Z98.1 Arthrodesis status; Z83.3 Family history of diabetes mellitus; Z87.891 Personal history of nicotine dependence
CPT/HCPCS: 36415; 36600; 71045; 74176; 80048; 80053; 81001; 82803; 83605; 83690; 83735; 83880; 84484; 85007; 85025; 85027; 86850; 86900; 86901; 86927; 87040; 87077; 87086; 87186; 87205; 87804; 93005; 96365; 96366; 96375; G0103; J0282; J1100; J1160; J1650; J1956; J2185; J2405; J3010; J3490; J7040; J7050; U0003; 99285-25; J7030; P9017

== ENCOUNTER → 2020-10-27 | Outpatient (CLI) | payer MEDICARE, OTHER ==
[~2020-10-27] MED LIST changes: +AMIO200T6 PO; +LEVO750T5 PO; +OXYC1TAB19 PO; +POTA10TA PO; +TAMS0.4C97 PO
--- NOTE | 2020-10-27 17:00 | CARD ---
MR#: [id number] Date of Study: 10/27/2020 Ordering Physician: ROXI WELLER, Referring Physician: ROXI WELLER, Tech: Fanny Grajeda APPROVED REPORT EXAM: Two-dimensional and M-mode echocardiogram with Doppler and color Doppler. Other Information Quality : AverageHR: 55bpm INDICATION COPD Cardiac Disease: CAD RISK FACTORS Hypertension Hyperlipidemia 2D DIMENSIONS Left Atrium(2D)3.8 (1.6-4.0cm)IVSd1.2 (0.7-1.1cm) Aortic Root(2D)3.4 (2.0-3.7cm)LVDd4.9 (3.9-5.9cm) LVOT Diameter2.1 (1.8-2.4cm)PWd1.1 (0.7-1.1cm) LVDs3.6 (2.5-4.0cm)FS (%) 25.5 % SV55.3 ml Aortic Valve AoV Peak Jaden.137.5cm/sAoV VTI32.1cm AO Peak GR.7.6mmHgLVOT Peak Jaden.115.3cm/s LVOT VTI 30.56cmAO Mean GR.4mmHg AB (VMAX)3.20ke2TDY (VTI)3.43cm2 Mitral Valve MV E Tjvzxazs55.1cm/sMV DECEL [id number] MV A Cersxqok85.9cm/sE/A Ratio1.2 Pulmonary Valve PV Peak Yqeemcgv68.5cm/sPV Peak Grad.3mmHg Tricuspid Valve TR P. [id number]/sRAP DMTPNVQX2dcEi TR Peak Gr.58uwKuILYK57fmSs LEFT VENTRICLE The left ventricle is normal size. There is mild concentric left ventricular hypertrophy. The left ve ntricular systolic function is normal and the ejection fraction is within normal range. The Ejection Fraction is 50-55%. There is normal LV segmental wall motion. Transmitral Doppler flow pattern is Gra de II-pseudonormal filling dynamics. RIGHT VENTRICLE The right ventricle is normal size. There is normal right ventricular wall thickness. The right ventr icular systolic function is normal. ATRIA The left atrium size is normal. The right atrium size is normal. The interatrial septum is intact wit h no evidence for an atrial septal defect or patent foramen ovale as noted on 2-D or Doppler imaging. AORTIC VALVE The aortic valve is normal in structure and function. Doppler and Color Flow revealed no significant aortic regurgitation. There is no significant aortic valvular stenosis. Calculated aortic valve area is 3.6 cm2 with maximum pressure gradient of 8 mmHg and mean pressure gradient of 4 mmHg. MITRAL VALVE The mitral valve is normal in structure and function. There is no evidence of mitral valve prolapse. There is no mitral valve stenosis. Doppler and Color Flow revealed no mitral valve regurgitation note d. TRICUSPID VALVE The tricuspid valve is normal in structure and function. Doppler and Color Flow revealed trace tricus pid regurgitation with an estimated PAP of 36 mmHg. There is no tricuspid valve stenosis. PULMONIC VALVE The pulmonic valve is not well visualized. Doppler and Color Flow revealed trace pulmonic valvular re gurgitation. GREAT VESSELS The aortic root is normal in size. The ascending aorta is normal in size. The IVC is dilated. PERICARDIAL EFFUSION There is no evidence of significant pericardial effusion. Critical Notification Critical Value: No <Conclusion> The left ventricle is normal size. The left ventricular systolic function is normal and the ejection fraction is within normal range. The Ejection Fraction is 50-55%. There is mild concentric left ventricular hypertrophy. Doppler and Color Flow revealed no significant aortic regurgitation. There is no significant aortic valvular stenosis. Calculated aortic valve area is 3.6 cm2 with maximum pressure gradient of 8 mmHg and mean pressure gr adient of 4 mmHg. Doppler and Color Flow revealed no mitral valve regurgitation noted. Doppler and Color Flow revealed trace tricuspid regurgitation with an estimated PAP of 36 mmHg. Signed by : Mynor Sepulveda MD Electronically Approved : 10/27/2020 16:59:27
== END ==
LOC: CARD 15:13
PROVIDERS: ATTEND Internal Medicine Cardiovascular Disease
DX: I11.9 Hypertensive heart disease without heart failure (principal); I25.10 Atherosclerotic heart disease of native coronary artery without angina pectoris
CPT/HCPCS: 93306

== ENCOUNTER → 2020-11-20 | Outpatient (CLI) | payer MEDICARE, OTHER ==
--- NOTE | 2020-11-20 15:18 | RAD ---
PQRS Compliance Statement: One or more of the following individualized dose reduction techniques were utilized for this examinat ion: 1. Automated exposure control 2. Adjustment of the mA and/or kV according to patient size 3. Use of iterative reconstruction technique Exam performed: CT scan of the chest without contrast. Indication: Follow-up lung nodule Date of Service: 11/20/2020.Comparison: CT chest from 05/22/2020 Technique: Contiguous helical acquisitions are obtained through the chest without IV contrast. Sagit ravi and coronal reformatted images are obtained and reviewed. CT chest findings: Left thyroid nodule. Lack of IV contrast limits evaluation of neck and intrathoracic great vessels, h owever they appear grossly normal in course and caliber. Heart is normal in size without pericardial effusion. Atheromatous coronary calcification is seen. Calcified mediastinal and hilar adenopathy is noted. No dominant mediastinal, hilar or axillary lymphadenopathy seen. The central airway is patent. Interrogation of lungs demonstrates mild bilateral emphysematous changes. Previously seen 3.5 mm nodu le in the superior medial right upper lobe has resolved. There is now a spiculated masslike density w ith adjacent linear opacity in the right upper lobe. This was not clearly identified previously. Ther e are also linear opacities in the right middle and right lower lobe. There is no pleural effusion or pneumothorax.. Limited evaluation of the upper abdominal structures is unremarkable. Bones are normal Impression CT chest: 1. Spiculated masslike density in the medial right upper lobe has resolved. There is a new linear spi culated masslike opacity in the right upper lobe . The bandlike appearance raises question for scarr ing or atelectasis. A pulmonary nodule with adjacent scarring is not excluded. Continued follow-up ex ams may be obtained to ensure PQRS Compliance Statement: One or more of the following individualized dose reduction techniques were utilized for this examinat ion: 1. Automated exposure control 2. Adjustment of the mA and/or kV according to patient size 3. Use of iterative reconstruction technique Electronically signed by: Lyudmila Griggs MD (11/20/2020 3:16 PM) [id number]
== END ==
LOC: CT 09:45
PROVIDERS: ATTEND Internal Medicine Pulmonary Disease
DX: R91.1 Solitary pulmonary nodule (principal); E04.1 Nontoxic single thyroid nodule; J43.9 Emphysema, unspecified
CPT/HCPCS: 71250

== ENCOUNTER → 2022-02-25 | Outpatient (CLI) | payer MEDICARE, OTHER ==
[~2022-02-25] MED LIST changes: +AMIO200T54 PO; -AMIO200T6 PO; -ESTR2TAB PO; +ESTR2TAB3 PO
--- NOTE | 2022-02-25 16:20 | RAD ---
CT of the chest without contrast: Clinical History: Reason: EX-SMOKER x50+ YRS, COUGH, LUNG NODULE / Spl. Instructions: / History: . Axial helical images of the chest were obtained without contrast. COMPARISON: November 20, 2020 There is gynecomastia bilaterally. There is diffuse emphysematous changes in the lungs. The lungs and pleural margins are clear. There is no mediastinal or hilar lymphadenopathy. The left thyroid nodule which is partially included the examination was seen previously. Impression: No significant findings. Previously seen pulmonary nodules have resolved. End of impression PQRS Compliance Statement: One or more of the following individualized dose reduction techniques were utilized for this examinat ion: 1. Automated exposure control 2. Adjustment of the mA and/or kV according to patient size 3. Use of iterative reconstruction technique Electronically signed by: Nima Patino III, MD (02/25/2022 4:17 PM) [facility]
== END ==
LOC: CT 12:42
PROVIDERS: ATTEND Internal Medicine Pulmonary Disease
DX: R91.1 Solitary pulmonary nodule (principal); J43.9 Emphysema, unspecified; E04.1 Nontoxic single thyroid nodule; N62 Hypertrophy of breast
CPT/HCPCS: 71250